=== PATIENT | female | born 1955 | race Caucasian/White ===

== ENCOUNTER → 2016-11-28 | Outpatient (CLI) | payer MEDICAID ==
[2016-11-28 17:25] LABS: ALT 30 U/L (9-52); AST 20 U/L (14-36); Alkaline Phosphatase 91 U/L (38-126); Anion Gap 12 mmol/L; Blood Urea Nitrogen 14 mg/dL (7-17); Calcium 9.7 mg/dL (8.4-10.2); Carbon Dioxide 26 mmol/L (22-30); Chloride 106 mmol/L (98-107); Glucose 89 mg/dL (74-99); Non-African American GFR(MDRD) >60 (>60 ml/min/1.73 sqM); Potassium 4.7 mmol/L (3.5-5.1); Sodium 144 mmol/L (137-145); Total Bilirubin 0.2 mg/dL (0.2-1.3); Total Protein 7.5 g/dL (6.3-8.2)
[2016-11-28 17:32] LABS: Anisocytosis Slight; Basophils % (A) 0 %; CH 20.2; CHCM 28.4; Eosinophils % (A) 0 %; HCT 25.3 % (34.0-46.0); HDW 3.98; HGB 7.1 gm/dL (11.4-16.0); Hypochromasia Marked; Luc # (Auto) 0.11; Luc % (Auto) 2; Lymphocytes # (A) 1.2 k/uL (1.0-4.8); Lymphocytes % (A) 18 %; MCHC 28.1 g/dL (31.0-37.0); MCV 71.3 fL (80.0-100.0); Mean Platelet Volume 7.1; Microcytosis Moderate; Monocytes # (A) 0.5 k/uL (0-1.0); Monocytes % (A) 7 %; Neutrophils # (A) 4.6 k/uL (1.3-7.7); Neutrophils % (A) 72 %; Poikilocytosis Slight; RBC 3.55 m/uL (3.80-5.40); RDW 16.8 % (11.5-15.5); WBC 6.4 k/uL (3.8-10.6); WBC (Perox) 6.67
[2016-11-28 17:34] LABS: Total Iron Binding Capacity 439 ug/dL (265-497)
[2016-11-28 18:30] LABS: Vitamin B12 887 pg/mL (239-931)
[2016-11-28 19:12] LABS: Erythrocyte Sedimentation Rate 41 mm/hr (0-20)
== END | disposition home or self-care (01) ==
LOC: LABWHC1 16:24
PROVIDERS: ATTEND Family Medicine
DX: D64.9 Anemia, unspecified (principal)
CPT/HCPCS: 36415; 80053; 82607; 82728; 82746; 83550; 84443; 85025; 85652

== ENCOUNTER 2016-12-31 10:19 | Day surgery (SDC) | payer MEDICAID ==
[2016-12-26 13:10] VITALS: BMI 32.5
--- NOTE | 2016-12-30 14:55 | P.GSHP ---
History of Present Illness H&P Date: 12/31/16 Chief Complaint: Anemia Patient was scheduled for upper and lower endoscopy tomorrow for the diagnosis of anemia. Her last colonoscopy was in 2012. That was normal with the exception of diverticulosis. To my knowledge is not having any bowel related complaints at this time. No family history of colon cancer. Past Medical History Past Medical History: Blood Disorder, GERD/Reflux Additional Past Medical History / Comment(s): Hx Anemia. Hx of phlebitis LLE in 1979.Shingles 10/01. Fractured 6th rib and fractured L2-T9. History of Any Multi-Drug Resistant Organisms: None Reported Past Surgical History: Appendectomy, Bladder Surgery, Ear Surgery, Hysterectomy Additional Past Surgical History / Comment(s): Hx colonoscopy, bladder susp. 2 ear surgeries (keyshawn). Past Anesthesia/Blood Transfusion Reactions: Motion Sickness, Postoperative Nausea & Vomiting (PONV) Additional Past Anesthesia/Blood Transfusion Reaction / Comment(s): Prior transfusions of her own blood. Past Psychological History: No Psychological Hx Reported Smoking Status: Never smoker Past Alcohol Use History: Rare Past Drug Use History: None Reported - Past Family History Brother(s) Family Medical History: Cancer Additional Family Medical History / Comment(s): Hodgkins. Medications and Allergies Home Medications Medication Instructions Recorded Confirmed Type Ascorbic Acid [Vitamin C] 1,000 mg PO DAILY 12/26/16 12/26/16 History Coral Calcium 1 tab PO DAILY 12/26/16 12/26/16 History Ferrous Sulfate [Feosol] 325 mg PO BID 12/26/16 12/26/16 History Ranitidine HCl [Zantac] 150 mg PO HS 12/26/16 12/26/16 History Vitamin B Complex 1 tab PO DAILY 12/26/16 12/26/16 History Vitamin D3 Unk 5,000 mg PO DAILY 12/26/16 12/26/16 History Allergies Allergy/AdvReac Type Severity Reaction Status Date / Time nitrofurantoin Allergy Rash/Hives Verified 12/26/16 12:48 [From Macrodantin] Penicillins Allergy Itching Verified 12/26/16 12:48 Surgical - Exam Deferred Assessment and Plan (1) Anemia Narrative/Plan: Will proceed with upper and lower endoscopy. Status: Acute
[~2016-12-31 10:19] MED LIST: LACTATED RINGERS 1,000 ML IV SCH
[2016-12-31] MEDS ORDERED: LIDOCAINE 1% 20 ML VIAL (10MG/ML) FOR IV START SQ ONE (11:25)
[2016-12-31 11:34] VITALS: RESP 16; TEMP 98.3
--- NOTE | 2016-12-31 12:48 | P.HPADDEND ---
H&P Addendum H&P Addendum Date: 12/31/16 Physical exam: General: Well-developed, well-nourished HEENT: Normocephalic, sclerae nonicteric Abdomen: Nontender, nondistended Extremities: No edema Neuro: Alert and orient No additional changes to the H&P
[2016-12-31] MEDS ORDERED: PROPOFOL 10 MG/ML 20 ML VIAL IV ONE (12:51)
[2016-12-31] MEDS ORDERED: MIDAZOLAM 2 MG/2 ML VIAL ONE (12:51)
[2016-12-31] MEDS ORDERED: LACTATED RINGERS 1,000 ML IV ONE (13:13)
--- NOTE | 2016-12-31 13:24 | P.PCN ---
Date of Procedure: 12/31/16 Procedure(s) Performed: PREOPERATIVE DIAGNOSIS: Anemia POSTOPERATIVE DIAGNOSIS: Duodenitis with erosions, gastritis, moderate hiatal hernia, distal esophagitis with Schatzki's ring, transverse and sigmoid colon polyps PROCEDURE: 1. EGD with biopsy 2. Colonoscopy with snare polypectomy ANESTHESIA: [facility] [place] SURGEON: Kareem Carranza M.D. SPECIMENS: Duodenum, antrum, GE junction, polyps ENDOSCOPIC PROCEDURE: The patient was on the endoscopy table in the left decubitus position. The Olympus gastroscope was inserted into the oropharynx and passed under direct visualization to the region of the third portion of the duodenum. From that point the scope was slowly withdrawn inspecting all surfaces carefully. There was duodenitis present with multiple small superficial erosions. Biopsies of the duodenum took place. The pylorus was widely patent. The stomach revealed mild gastritis. Retroflexion revealed a moderate sized hiatal hernia. The diaphragmatic hiatus was present at 44 7 m. The GE junction was present at 39 cm. There was some gastritis at the site of the hernia is well. The esophagus was examined. There was distal esophagitis present with a Schatzki's ring noted. A biopsy of the GE junction took place. The remainder the esophagus appear normal. The patient was kept on the endoscopy table in the left decubitus position. The Olympus colonoscope was inserted into the anus and passed under direct visualization to the base of the cecum. The appendiceal orifice was visualized. From that point the scope was slowly withdrawn inspecting all surfaces carefully. There were no neoplastic inflammatory or polypoid lesions throughout the cecum and ascending colon. In the transverse colon there was noted to be a small polyp that was removed using the snare with cautery technique. In the sigmoid colon and another small polyp was removed in a similar fashion. The patient's prep was somewhat suboptimal particularly in the rectosigmoid region. I did not visualize any abnormalities however. There was no visible diverticulosis seen. Digital rectal examination was normal. The patient was taken to the recovery room in stable condition per anesthesia guidelines. RECOMMENDATIONS: Biopsy results. Increase antiacid therapy. Minimize NSAID use.
[2016-12-31 13:45] VITALS: BP 146/84; PULSE 63
== END 2016-12-31 14:38 | disposition home or self-care (01) ==
LOC: ORWHC2ENDO 10:19
PROVIDERS: ATTEND Surgery
DX: K29.80 Duodenitis without bleeding (principal); K44.9 Diaphragmatic hernia without obstruction or gangrene; K29.50 Unspecified chronic gastritis without bleeding; K21.0 Gastro-esophageal reflux disease with esophagitis; K22.2 Esophageal obstruction; K20.0 Eosinophilic esophagitis; D12.3 Benign neoplasm of transverse colon; D12.5 Benign neoplasm of sigmoid colon; Z80.7 Family history of other malignant neoplasms of lymphoid, hematopoietic and related tissues; Z79.899 Other long term (current) drug therapy; Z88.1 Allergy status to other antibiotic agents; Z88.0 Allergy status to penicillin
CPT/HCPCS: 88305; 88312; 88342; 45385; 43239; J2250; J2704; 99153

== ENCOUNTER → 2019-08-26 | Outpatient (CLI) | payer MEDICARE, BC ==
[2019-08-26 17:42] LABS: HCT 41.9 % (34.0-46.0); HGB 14.3 gm/dL (11.4-16.0); MCH 33.3 pg (25.0-35.0); MCHC 34.2 g/dL (31.0-37.0); MCV 97.2 fL (80.0-100.0); Mean Platelet Volume 5.9; Platelet Count 304 k/uL (150-450); RBC 4.31 m/uL (3.80-5.40); RDW 12.6 % (11.5-15.5); WBC 8.2 k/uL (3.8-10.6)
[2019-08-26 17:46] LABS: Potassium 4.3 mmol/L (3.5-5.1)
== END | disposition home or self-care (01) ==
LOC: LABPAT 16:29
PROVIDERS: ATTEND Internal Medicine Interventional Cardiology
DX: Z01.812 Encounter for preprocedural laboratory examination (principal); R06.02 Shortness of breath; R94.39 Abnormal result of other cardiovascular function study
CPT/HCPCS: 36415; 80051; 82565; 82947; 84520; 85027

== ENCOUNTER → 2019-08-30 | Day surgery (SDC) | payer MEDICARE, BC ==
[2019-08-29 11:45] VITALS: BMI 36.7
[~2019-08-30] MED LIST changes: +ALPRAZolam 0.25 MG TAB PO PRN; +ALPRAZolam 0.5 MG TAB PO PRN; +ASPIRIN 325 MG TAB PO ONE; +ATORVASTATIN 80 MG TAB PO ONE; +HEPARIN SODIUM 1,000 UN/ML (10ML VL) IV ONE; +HEPARIN SODIUM 1,000 UN/ML (10ML VL) ONE; +IOPAMIDOL-370 100ML BTL INJ ONE; -LACTATED RINGERS 1,000 ML IV SCH; +LIDOCAINE 1% INJ 10MG/ML (20 ML MDV) ONE; +LIDOCAINE 1% INJ 10MG/ML (20 ML MDV) SQ ONE; +MIDAZOLAM 2 MG/2 ML VIAL IV ONE; +NITROGLYCERIN SL TABS 0.4 MG TAB SUBLINGUAL PRN; +RX INFO: IV CONTRAST WAS GIVEN 1 EACH MISC MISCELLANE PRN; +SODIUM CHLORIDE 0.9% 1,000 ML IV SCH; +SODIUM CHLORIDE 0.9% 1,000 ML in EMPTY BAG 1 BAG IV ONE; +VERAPAMIL 2.5 MG/ML 2 ML AMP ONE; +amLODIPine 5 MG TAB PO STA
[2019-08-30 05:41] VITALS: RESP 18; TEMP 98.1
[2019-08-30] MEDS: VERAPAMIL SYRINGE (5 MG/10 ML) INTRAARTER ONE ×2 (06:09→06:25)
--- NOTE | 2019-08-30 08:37 | CC ---
CARDIAC CATHETERIZATION REPORT DATE OF SERVICE: 08/30/2019 PROCEDURE: Coronary angiography. PERFORMED BY: Dr. Nini Duncan. CLINICAL INFORMATION: Mrs. Stefani Mars is a 64-year-old lady with hypertension, hyperlipidemia, who had a recent positive stress test with poor exercise capacity. She was advised coronary angiography after due discussion regarding risks, benefits, and options. PROCEDURE NOTE: Under local anesthesia and strict aseptic precautions, a 6-Persian introducer was placed in the right radial artery. I used a JL3.5 and JR4 catheters, There was extreme tortuosity as the brachiocephalic artery connected to the ascending aorta. However, with the help of a Glidewire, I was able to get the catheter down and using the wire to help cannulate both arteries were cannulated nicely. I did not attempt LV pressures because of extreme tortuosity of the arterial system. Coronary angiography was performed uneventfully. The sheath was taken out and TR band applied and patient was sent to the room in stable condition. Saturation of the fingers of the right hand was about 98%. Patient received 3,500 units of heparin intravenously. CORONARY ANGIOGRAPHY FINDINGS: RIGHT CORONARY ARTERY: Technically a dominant vessel. No significant disease. Distally it bifurcates into PDA and PLV, both of which supply a sizable amount of myocardium. There is no significant disease in the dominant RCA or its branches. LEFT MAIN CORONARY ARTERY: Short patent disease-free vessel that bifurcates into LAD and circumflex. LEFT ANTERIOR DESCENDING CORONARY ARTERY: Good caliber vessel extends along the anterior wall, gives off septal and diagonal branches runs all the way to the apex, has no significant disease only minor irregularities noted. LEFT POSTERIOR CIRCUMFLEX CORONARY ARTERY: Technically nondominant vessel gives off a single obtuse marginal that runs laterally in the lateral direction with a tortuous larger branch which continues as a _postero- lateral. No significant disease in the nondominant fair caliber, fair distribution circumflex system. LV-gram was not performed. LV pressures were not checked. FINAL IMPRESSION: This patient has a right dominant system. No significant obstructive coronary artery disease. Filling pressures were not checked. RECOMMENDATIONS: Findings were reviewed with the patient. She has a poor exercise capacity. We will also check pulmonary function tests and seek full pulmonary evaluation and get into a cardiac rehab type program to improve her conditioning. The patient will be discharged later on today and will be seen in my office in the next 48 hours. Moderate conscious sedation time was 26 min. MMODL / IJN: [id number] / MTDOlimpia
--- NOTE | 2019-08-30 12:01 | ECHOF ---
Referral Reason:LV Function MEASUREMENTS -------- HEIGHT: 160.0 cm WEIGHT: 112.9 kg BP: RVIDd: 3.4 cm (< 3.3) IVSd: 1.3 cm (0.6 - 1.1) LVIDd: 4.7 cm (3.9 - 5.3) LVPWd: 1.6 cm (0.6 - 1.1) IVSs: 1.9 cm LVIDs: 3.2 cm LVPWs: 1.8 cm IVSd: 1.4 cm (0.6 - 1.1) LVIDd: 4.4 cm (3.9 - 5.3) LVPWd: 1.7 cm (0.6 - 1.1) IVSs: 2.4 cm LVIDs: 2.3 cm LVPWs: 2.2 cm EDV(Teich): 89 ml ESV(Teich): 19 ml EF(Teich): 79 % %FS: 48 % SV(Teich): 70 ml Ao Diam: 3.8 cm (2.0 - 3.7) AV Cusp: 1.7 cm (1.5 - 2.6) LA Diam: 3.6 cm (2.7 - 3.8) MV E Papo: 0.60 m/s MV DecT: 196 ms MV A Papo: 0.81 m/s MV E/A Ratio: 0.74 FINDINGS -------- Sinus rhythm. This was a technically adequate study. The left ventricular size is normal. There is moderate concentric left ventricular hypertrophy. O verall left ventricular systolic function is normal with, an EF between 55 - 60 %. Atypical septal wall motion The right ventricle is mildly enlarged. The left atrial size is normal. The right atrial size is normal. Interatrial and interventricular septum intact. There is no evidence of aortic regurgitation. There is no evidence of aortic stenosis. No mitral regurgitation. Trace tricuspid regurgitation present. Unable to estimate RVSP due to inadequate TR jet spectral do ppler profile. There is no pulmonic regurgitation present. The aortic root size is normal. IVC Not well visulized. There is no pericardial effusion. CONCLUSIONS -------- 1. Sinus rhythm. 2. This was a technically adequate study. 3. The left ventricular size is normal. 4. There is moderate concentric left ventricular hypertrophy. 5. Overall left ventricular systolic function is normal with, an EF between 55 - 60 %. 6. Atypical septal wall motion 7. The right ventricle is mildly enlarged. 8. The left atrial size is normal. 9. The right atrial size is normal. 10. Interatrial and interventricular septum intact. 11. There is no evidence of aortic regurgitation. 12. There is no evidence of aortic stenosis. 13. No mitral regurgitation. 14. Trace tricuspid regurgitation present. 15. Unable to estimate RVSP due to inadequate TR jet spectral doppler profile. 16. There is no pulmonic regurgitation present. 17. The aortic root size is normal. 18. IVC Not well visulized. 19. There is no pericardial effusion. POSTAGE MACHINE OPERATOR: Denita Becerra RDCS
[2019-08-30 13:19] VITALS: BP 128/65; PULSE 55
== END ==
LOC: CATHCVL 05:32
PROVIDERS: ATTEND Internal Medicine Interventional Cardiology
DX: I51.7 Cardiomegaly (principal); I07.1 Rheumatic tricuspid insufficiency; I77.1 Stricture of artery; R07.89 Other chest pain; R93.1 Abnormal findings on diagnostic imaging of heart and coronary circulation; E78.5 Hyperlipidemia, unspecified; E78.00 Pure hypercholesterolemia, unspecified; R94.39 Abnormal result of other cardiovascular function study; Z79.899 Other long term (current) drug therapy; Z88.1 Allergy status to other antibiotic agents
CPT/HCPCS: 93306; 93454; C1769 ×2; C1894; J2250; J2001; J1644; Q9967

== ENCOUNTER → 2020-01-30 | Outpatient (CLI) | payer MEDICARE, BC | END | disposition home or self-care (01) | DX: E78.5 Hyperlipidemia, unspecified (principal) | CPT/HCPCS: 36415; 80061; 82550; 84450; 84460 ==

== ENCOUNTER 2022-04-10 15:35 | Emergency (ER) | payer MEDICARE, BC ==
[2022-04-10] MEDS ORDERED: KETOROLAC 15 MG/ML 1 ML VIAL IM STA ×2 (17:17→21:50)
[2022-04-10] MEDS ORDERED: ORPHENADRINE 30 MG/ML 2 ML VIAL IVP STA (21:46)
[2022-04-10] MEDS ORDERED: LORazepam 2 MG/ML INJ IM STA (21:49)
[2022-04-10] MEDS ORDERED: HYDROmorphone 1 MG/ML 1 ML SYRINGE IM STA (21:51)
--- NOTE | 2022-04-10 23:36 | ED ---
General Adult HPI - General Chief complaint: Back Pain/Injury Stated complaint: Pain Control Time Seen by Provider: 04/10/22 21:32 Source: patient Mode of arrival: wheelchair Limitations: no limitations - History of Present Illness Initial comments: Patient is a 66-year-old female presenting with chief complaint of back pain. Patient states that at the end of February she sustained several fractures to the right arm and compression fractures to the lower back after falling backwards down 2 stairs. Her hospital stay and surgeries were performed in [place]. Patient is now back in [place] and following with Dr. Rodriguez for her right arm injuries. Patient states that her pain has been increased recently. She is taking Percocet 7.5 mg at home which have not been helping her pain today. Patient states that she has had long-standing prior difficulty controlling her bladder, denies any new or worsening loss of bladder control, denies loss of bowel control. Denies saddle paresthesia, denies leg numbness or weakness. Denies chest pain, shortness of breath, abdominal pain, nausea, vomiting, hematochezia, hematuria, dysuria, urgency, frequency. - Related Data Home Medications Medication Instructions Recorded Confirmed Ascorbic Acid [Vitamin C] 1,000 mg PO DAILY 12/26/16 08/30/19 Vitamin B Complex 1 tab PO DAILY 12/26/16 08/30/19 Aspirin [Adult Low Dose Aspirin EC] 81 mg PO QAM 08/29/19 08/30/19 Cholecalciferol (Vitamin D3) 5,000 unit PO DAILY 08/29/19 08/30/19 [Vitamin D3] Ferrous Sulfate [Iron (65 MG 325 mg PO DAILY 08/29/19 08/30/19 Elemental)] Metoprolol Tartrate [Lopressor] 25 mg PO QAM 08/29/19 08/30/19 Rosuvastatin Calcium [Crestor] 5 mg PO HS 08/29/19 08/30/19 Previous Rx's Medication Instructions Recorded amLODIPine BESYLATE [Norvasc] 5 mg PO HS #30 tablet 08/30/19 Allergies Allergy/AdvReac Type Severity Reaction Status Date / Time nitrofurantoin Allergy Rash/Hives Verified 08/30/19 05:17 [From Macrodantin] Penicillins Allergy Itching Verified 08/30/19 05:17 Review of Systems ROS Statement: Those systems with pertinent positive or pertinent negative responses have been documented in the HPI. ROS Other: All systems not noted in ROS Statement are negative. Past Medical History Past Medical History: Blood Disorder, GERD/Reflux Additional Past Medical History / Comment(s): Hx Anemia. Hx of phlebitis LLE in 1979.Shingles 10/01. Fractured 6th rib and fractured L2-T9. History of Any Multi-Drug Resistant Organisms: None Reported Past Surgical History: Appendectomy, Bladder Surgery, Ear Surgery, Hysterectomy Additional Past Surgical History / Comment(s): Hx colonoscopy, bladder susp. 2 ear surgeries (keyshawn). Past Anesthesia/Blood Transfusion Reactions: Motion Sickness, Postoperative Nausea & Vomiting (PONV) Additional Past Anesthesia/Blood Transfusion Reaction / Comment(s): Prior transfusions of her own blood. Past Psychological History: No Psychological Hx Reported Smoking Status: Never smoker Past Alcohol Use History: Rare Past Drug Use History: None Reported - Past Family History Brother(s) Family Medical History: Cancer Additional Family Medical History / Comment(s): Hodgkins. General Exam Limitations: no limitations General appearance: alert, in no apparent distress Head exam: Present: atraumatic, normocephalic, normal inspection Eye exam: Present: normal appearance, EOMI. Absent: scleral icterus Neck exam: Present: normal inspection Respiratory exam: Present: normal lung sounds bilaterally. Absent: respiratory distress, wheezes, rales, rhonchi, stridor Cardiovascular Exam: Present: regular rate, normal rhythm, normal heart sounds. Absent: systolic murmur, diastolic murmur, rubs, gallop, clicks Extremities exam: Present: normal inspection (Patient is wearing a brace and has several surgical scars to the right arm, otherwise normal inspection), full ROM (Limited range of motion of the right arm due to recent surgery, otherwise full range of motion). Absent: tenderness Back exam: Present: normal inspection. Absent: full ROM (Secondary to pain) Neurological exam: Present: alert, oriented X3, CN II-XII intact Expanded Patient oriented to: Present: person, place, time Speech: Present: fluid speech Cranial nerves: EOM's Intact: Normal, Facial Sensation: Normal Eye Response: (4) open spontaneously Motor Response: (6) obeys commands Verbal Response: (5) oriented [place] Total: 15 Psychiatric exam: Present: normal affect, normal mood Skin exam: Present: warm, dry, intact, normal color. Absent: rash Course Vital Signs 04/10/22 17:11 Temperature 98.2 F Pulse Rate 74 Respiratory 18 Rate Blood Pressure 136/85 O2 Sat by Pulse 98 Oximetry Medical Decision Making - Medical Decision Making Patient is a 66-year-old female presenting with chief complaint of back pain. Patient states that at the end of February she suffered several compression fractures after falling backwards down 2 stairs. Patient has been using her pain medication at home, this includes Percocet 7.5 mg, and states that today it has not been helping her. On examination patient is clearly in pain, other than her right arm which is in a brace and has surgical changes, she has full range of motion of the remaining 3 limbs. She denies any new onset loss of bowel or bladder control, saddle paresthesia, leg numbness or weakness. Examination shows no focal neurological deficits. Patient was given pain medication. On r eassessment patient is resting comfortably, she appears stable for discharge with outpatient follow-up at this time. I instructed the patient to follow up with her PCP and orthopedist as soon as possible. Report back to ER if any worsening symptoms. I discussed return parameters and alarming symptoms. Answered all questions. Patient conveyed verbal understanding and agreed to the plan. I discussed this case with my attending Dr. Lopez. Disposition Clinical Impression: Back pain Disposition: HOME SELF-CARE Condition: Good Instructions (If sedation given, give patient instructions): Acute Low Back Pain (ED) Additional Instructions: Follow-up with your PCP as soon as possible. Report back to ER if any worsening symptoms, including but not limited to numbness of the genitals, loss of control of your bowel or bladder, leg weakness. Is patient prescribed a controlled substance at d/c from ED?: No Referrals: Devin Baldwin DO [Primary Care Provider] - 1-2 days Time of Disposition: 23:36
[2022-04-11 00:58] VITALS: BP 143/73; PULSE 71; RESP 16; TEMP 98.1
== END 2022-04-11 00:55 | disposition home or self-care (01) ==
LOC: EC 15:35
DX: M54.50 Low back pain, unspecified (principal); K21.9 Gastro-esophageal reflux disease without esophagitis; Z79.899 Other long term (current) drug therapy; W10.9XXA Fall (on) (from) unspecified stairs and steps, initial encounter
CPT/HCPCS: 99283; 96374; 96372 ×4; J2060; J2360; J1170; J1885

== ENCOUNTER 2022-04-13 11:38 | Inpatient (IN) | payer MEDICARE, BC ==
[2022-04-13] MEDS ORDERED: HYDROmorphone 1 MG/ML 1 ML SYRINGE IVP STA (13:28)
[2022-04-13] MEDS ORDERED: LORazepam 2 MG/ML INJ IV STA (13:29)
--- NOTE | 2022-04-13 13:32 | ED ---
General Adult HPI - General Chief complaint: Back Pain/Injury Stated complaint: anxiety Time Seen by Provider: 04/13/22 13:11 Source: patient, RN notes reviewed Mode of arrival: EMS Limitations: no limitations - History of Present Illness Initial comments: Patient is a pleasant 66-year-old female presenting to the emergency department with anxiety and pain. Patient is admitting to feeling very anxious and persistently stating help me how may help me. Patient had a fall over a month ago with several arm fractures. Patient did have 3 surgeries. Patient also has history of reported compression fractures of T9 and L2 which were found to be chronic. Patient denies chronic lower back pain. No new incontinence or retention of bowel or bladder. No leg weakness or loss of sensation. Patient states she was here recently and given medication. Patient is on Percocet at home. Patient has spoke with Dr. Baldwin office as well as Dr. Rodriguez's office. Patient feels she needs to be admitted. - Related Data Home Medications Medication Instructions Recorded Confirmed Ascorbic Acid [Vitamin C] 1,000 mg PO DAILY 12/26/16 08/30/19 Vitamin B Complex 1 tab PO DAILY 12/26/16 08/30/19 Aspirin [Adult Low Dose Aspirin EC] 81 mg PO QAM 08/29/19 08/30/19 Cholecalciferol (Vitamin D3) 5,000 unit PO DAILY 08/29/19 08/30/19 [Vitamin D3] Ferrous Sulfate [Iron (65 MG 325 mg PO DAILY 08/29/19 08/30/19 Elemental)] Metoprolol Tartrate [Lopressor] 25 mg PO QAM 08/29/19 08/30/19 Rosuvastatin Calcium [Crestor] 5 mg PO HS 08/29/19 08/30/19 Previous Rx's Medication Instructions Recorded amLODIPine BESYLATE [Norvasc] 5 mg PO HS #30 tablet 08/30/19 Allergies Allergy/AdvReac Type Severity Reaction Status Date / Time nitrofurantoin Allergy Rash/Hives Verified 04/13/22 12:10 [From Macrodantin] Penicillins Allergy Itching Verified 04/13/22 12:10 Review of Systems ROS Statement: Those systems with pertinent positive or pertinent negative responses have been documented in the HPI. ROS Other: All systems not noted in ROS Statement are negative. Constitutional: Denies: fever Eyes: Denies: eye pain ENT: Denies: ear pain Respiratory: Denies: cough Cardiovascular: Denies: chest pain Endocrine: Denies: fatigue Gastrointestinal: Denies: abdominal pain Genitourinary: Denies: dysuria Musculoskeletal: Reports: as per HPI, back pain Skin: Denies: rash Neurological: Denies: weakness Psychiatric: Reports: anxiety Past Medical History Past Medical History: Blood Disorder, GERD/Reflux Additional Past Medical History / Comment(s): Hx Anemia. Hx of phlebitis LLE in 1979.Shingles 10/01. Fractured 6th rib and fractured L2-T9. History of Any Multi-Drug Resistant Organisms: None Reported Past Surgical History: Appendectomy, Bladder Surgery, Ear Surgery, Hysterectomy Additional Past Surgical History / Comment(s): Hx colonoscopy, bladder susp. 2 ear surgeries (keyshawn). right shoulder/elbow/wrist surgery post trauma. Past Anesthesia/Blood Transfusion Reactions: Motion Sickness, Postoperative Nausea & Vomiting (PONV) Additional Past Anesthesia/Blood Transfusion Reaction / Comment(s): Prior transfusions of her own blood. Past Psychological History: No Psychological Hx Reported Smoking Status: Never smoker Past Alcohol Use History: Rare Past Drug Use History: None Reported - Past Family History Brother(s) Family Medical History: Cancer Additional Family Medical History / Comment(s): Hodgkins. General Exam Limitations: no limitations General appearance: alert, in no apparent distress Head exam: Present: normocephalic Eye exam: Present: normal appearance Neck exam: Present: normal inspection Respiratory exam: Present: normal lung sounds bilaterally Cardiovascular Exam: Present: regular rate, normal rhythm Expanded Peripheral pulses: 2+: Posterior Tibialis (R), Posterior Tibialis (L), Dorsalis Pedis (R), Dorsalis Pedis (L) GI/Abdominal exam: Present: soft. Absent: tenderness, pulsatile mass Extremities exam: Present: other (Incision right upper arm clean and dry and intact. Brace on the right wrist/forearm.) Back exam: Present: normal inspection. Absent: tenderness Neurological exam: Present: alert Psychiatric exam: Present: anxious Skin exam: Present: normal color Course Vital Signs 04/13/22 12:05 Temperature 97.9 F Pulse Rate 58 L Respiratory 20 Rate Blood Pressure 145/74 O2 Sat by Pulse 96 Oximetry Medical Decision Making - Medical Decision Making Patient states she is unable to go home secondary to jehovah's witness anxiety and relentless back pain. Case discussed with Dr. Acuna, who will admit covering for Dr. Baldwin. Consults will be placed with Dr. Camarillo as well as psychiatry. Disposition Clinical Impression: Back pain, Anxiety Disposition: ADMITTED IP TO THIS HOSP Is patient prescribed a controlled substance at d/c from ED?: No Referrals: Devin Baldwin DO [Primary Care Provider] - 1-2 days Time of Disposition: 13:45
[2022-04-13] MEDS ORDERED: HYDROmorphone 0.5 MG/0.5 ML SYRINGE IVP PRN (13:45)
[2022-04-13] MEDS ORDERED: LORazepam 2 MG/ML INJ IV PRN (13:45)
[2022-04-13] MEDS ORDERED: SODIUM CHLORIDE 0.9% 1,000 ML IV SCH (13:45)
[2022-04-13] MEDS ORDERED: NALOXONE 0.4 MG/ML 1 ML VIAL IV PRN (13:45)
[2022-04-13] MEDS ORDERED: HYDROmorphone 1 MG/ML 1 ML SYRINGE IVP PRN (13:45)
[2022-04-13] MEDS: SODIUM CHLORIDE 0.9% 1,000 ML IV STA ×2 (14:00→18:23)
[2022-04-13 14:18] LABS: Basophils % (A) 0 %; Eosinophils # (A) 0.1 k/uL (0-0.7); Eosinophils % (A) 1 %; HGB 12.3 gm/dL (11.4-16.0); Hypochromasia Slight; Lymphocytes # (A) 1.1 k/uL (1.0-4.8); Lymphocytes % (A) 14 %; MCH 30.7 pg (25.0-35.0); MCHC 31.5 g/dL (31.0-37.0); MCV 97.5 fL (80.0-100.0); Mean Platelet Volume 7.2; Monocytes # (A) 0.6 k/uL (0-1.0); Monocytes % (A) 7 %; Neutrophils # (A) 6.2 k/uL (1.3-7.7); Neutrophils % (A) 76 %; Platelet Count 377 k/uL (150-450); WBC 8.1 k/uL (3.8-10.6)
[2022-04-13 14:26] LABS: ALT 21 U/L (4-34); AST 28 U/L (14-36); African American GFR (CKD) >90 (>60 ml/min/1.73 sqM); Albumin 4.1 g/dL (3.5-5.0); Alkaline Phosphatase 212 U/L (38-126); Anion Gap 9 mmol/L; Blood Urea Nitrogen 6 mg/dL (7-17); Calcium 9.5 mg/dL (8.4-10.2); Carbon Dioxide 23 mmol/L (22-30); Chloride 103 mmol/L (98-107); Glucose 92 mg/dL (74-99); Non-African American GFR(CKD) >90 (>60 ml/min/1.73 sqM); Potassium 3.8 mmol/L (3.5-5.1); Sodium 135 mmol/L (137-145); Total Bilirubin 0.6 mg/dL (0.2-1.3); Total Protein 7.7 g/dL (6.3-8.2)
--- NOTE | 2022-04-13 15:11 | XR ---
EXAMINATION TYPE: XR thoracic spine complete DATE OF EXAM: 04/13/2022 COMPARISON: 08/24/2015 HISTORY: Back pain TECHNIQUE: 3 views FINDINGS: There is thoracic kyphotic deformity with anterior wedging of upper lumbar and lower thorac ic vertebra up to 50%. There is L1 more severe wedging of 75%. There is osteopenia. There is T11 wedg ing 50% and T9 wedging 50%. T8 shows 50% compression deformity as well. There is no paraspinal mass. There is evidence of infiltrate and atelectasis at both lung bases. There is hiatal hernia. IMPRESSION: Multiple thoracic compression fractures in the lower thoracic spine which are mostly new compared to old exam.
--- NOTE | 2022-04-13 15:13 | XR ---
EXAMINATION TYPE: XR lumbar spine 2 or 3V DATE OF EXAM: 04/13/2022 COMPARISON: 08/24/2015 HISTORY: Back pain TECHNIQUE: 4 views FINDINGS: There is osteopenia. There is L1 compression deformity 80% anterior wedging. There is 50% w edging of L2 and 20% wedging of L3. There is 36% compression deformity of L4. There is 20% compressio n of L5. Sacroiliac joints are intact. IMPRESSION: Multiple osteoporotic type lumbar compression fractures show significant progression comp ared to old exam.
[2022-04-13] MEDS: busPIRone HCl 10 MG TAB PO SCH ×2 (18:14→19:42)
[2022-04-13] MEDS: APIXABAN 5 MG TAB PO SCH (19:41)
[2022-04-13] MEDS: METOPROLOL TARTRATE 25 MG TAB PO SCH (19:42)
[2022-04-13] MEDS: methocarbamoL 500 MG TAB PO SCH (19:42)
[2022-04-13 20:50] LABS: Amphetamine Screen,Urine Not Detected (NotDetected); Barbiturate Screen,Urine Not Detected (NotDetected); Benzodiazepines Screen,Urine Detected (NotDetected); Cocaine Screen,Urine Not Detected (NotDetected); Methadone Screen, Urine Not Detected (NotDetected); Opiate Screen,Urine Detected (NotDetected); Phencyclidine Screen,Urine Not Detected (NotDetected); Tricyclic Antidepressant,Urine Not Detected (NotDetected); Urn Cannabinoid Scrn Not Detected (NotDetected)
[2022-04-13 20:52] LABS: Oxycodone Screen, Urine Detected (NotDetected)
[2022-04-13] MEDS: MORPHINE SULFATE 2 MG/ML SYRINGE IVP PRN (20:57)
[2022-04-13] MEDS: oxyCODONE-APAP 7.5-325MG 1 EACH TAB PO PRN (23:38)
--- NOTE | 2022-04-13 23:40 | P.HPIM ---
History of Present Illness H&P Date: 04/13/22 Chief Complaint: back pain Patient is a 66-year-old female with a known history of GERD, anxiety and recent history of fall while she was on vacation status post right shoulder surgery and right elbow surgery and forearm fracture on 03/10/2022. She fell on states and also sustained sixth rib fracture. Patient did history of chronic back pain prior to the fall and was told that got worsened with T9 and L2 compression fractures. Hospital course was complicated with pulmonary embolism and is currently on anticoagulation with Eliquis. Patient came to ER with complaints of pain and patient is also very anxious. Complains of lower back pain. Denies any tingling sensation or numbness in the legs. Patient does wear depends and denies any new complaints of incontinence of the bowel or bladder. No leg weakness. Denied any headache or dizziness or lightheadedness. No fever no chills. No cough or sputum production. No chest pain or shortness breath. Thoracic spine x-ray showed mild pulm thoracic compression fractures in the lower thoracic spine which are mostly new compared to old exam. Lumbar spine showed multiple osteoporotic type lumbar compression fractures show significant progression compared to old exam. Laboratory data showed WBC 8.1 hemoglobin 12.3 and platelets 377 Sodium 135 potassium 3.8 chloride 103 BUN 16 creatinine 0.65 and UDS is positive for opiates and oxycodone and benzodiazepines. Review of Systems Constitutional: Patient denies any fever or chills . No generalized weakness or weight loss. Abdomen: Patient denied nausea vomiting and diarrhea and abdominal pain. Cardiovascular: Patient denies any chest pain or short of breath no palpitations. Respiratory: patient denied any cough or sputum production. No shortness of breath Neurologic: Patient denied any numbness or tingling headache. Musculoskeletal: Patient denies any complaints of joint swelling or deformity.back pain Skin: Negative Psychiatric: Negative Endocrine: No heat or cold intolerance. No recent weight gain. Genitourinary: No dysuria or hematuria. All other 14 point ROS negative except the above Past Medical History Past Medical History: Blood Disorder, GERD/Reflux Additional Past Medical History / Comment(s): Hx Anemia. Hx of phlebitis LLE in 1979.Shingles 10/01. Fractured 6th rib and fractured L2-T9. History of Any Multi-Drug Resistant Organisms: None Reported Past Surgical History: Appendectomy, Bladder Surgery, Ear Surgery, Hysterectomy Additional Past Surgical History / Comment(s): Hx colonoscopy, bladder susp. 2 ear surgeries (keyshawn). right shoulder/elbow/wrist surgery post trauma. Past Anesthesia/Blood Transfusion Reactions: Motion Sickness, Postoperative Nausea & Vomiting (PONV) Additional Past Anesthesia/Blood Transfusion Reaction / Comment(s): Prior transfusions of her own blood. Past Psychological History: No Psychological Hx Reported Smoking Status: Never smoker Past Alcohol Use History: Rare Past Drug Use History: None Reported - Past Family History Brother(s) Family Medical History: Cancer Additional Family Medical History / Comment(s): Hodgkins. Medications and Allergies Home Medications Medication Instructions Recorded Confirmed Type Ferrous Sulfate [Iron (65 MG 325 mg PO W/BRKFST 08/29/19 04/13/22 History Elemental)] Metoprolol Tartrate [Lopressor] 25 mg PO BID 08/29/19 04/13/22 History ALPRAZolam [Xanax] 0.25 mg PO DAILY PRN 04/13/22 04/13/22 History Acetaminophen Tab [Tylenol] 325 - 650 mg PO Q6H PRN 04/13/22 04/13/22 History Apixaban [Eliquis] 5 mg PO BID 04/13/22 04/13/22 History Atorvastatin Calcium [Lipitor] 10 mg PO Q48H 04/13/22 04/13/22 History Buprenorphine [Butrans 5 MCG/HR] 1 patch TRANSDERM TU 04/13/22 04/13/22 History Escitalopram [Lexapro] 20 mg PO DAILY 04/13/22 04/13/22 History busPIRone HCl [Buspar] 10 mg PO TID@0900,1600,2100 04/13/22 04/13/22 History methocarbamoL [Robaxin] 1,000 mg PO TID@0900,1600,2100 04/13/22 04/13/22 History oxyCODONE-APAP 7.5-325MG [Percocet 1 tab PO Q8H PRN 04/13/22 04/13/22 History 7.5-325 mg] polyethylene glycoL 3350 [Miralax] 17 gm PO DAILY 04/13/22 04/13/22 History Allergies Allergy/AdvReac Type Severity Reaction Status Date / Time nitrofurantoin Allergy Rash/Hives Verified 04/13/22 16:21 [From Macrodantin] Penicillins Allergy Itching Verified 04/13/22 16:21 Physical Exam Vitals: Vital Signs Temp Pulse Resp BP Pulse Ox 04/13/22 12:05 97.9 F 58 L 20 145/74 96 Intake and Output 04/13/22 04/13/22 04/14/22 14:59 22:59 06:59 Intake Total 200 Balance 200 Intake: Oral 200 Other: Voiding Method Toilet Weight 113.398 kg 113.398 kg PHYSICAL EXAMINATION: Patient is lying in the bed comfortably, no acute distress, awake alert and oriented.. HEENT: Normocephalic. Neck is supple. Pupils reactive. Nostrils clear. Oral cavity is moist. Neck reveals no JVD, carotid bruits, or thyromegaly. CHEST EXAMINATION: Trachea is central. Symmetrical expansion. Lung urbano clear to auscultation and percussion. CARDIAC: Normal S1, S2 with no gallops. No murmurs ABDOMEN: Soft. Bowel sounds normal. No organomegaly. No abdominal bruits. Extremities: reveal no edema. No clubbing or cyanosis Neurologically awake, alert, oriented x3 with well-coordinated movements. No focal deficits noted Skin: No rash or skin lesions. Psychiatric: Cooperative. Nonsuicidal, anxious Musculoskeletal: No joint swelling or deformity. Normal range of motion. Results CBC & Chem 7: 04/13/22 13:28 04/13/22 13:28 Labs: Abnormal Lab Results - Last 24 Hours (Table) 04/13/22 04/13/22 Range/Units 13:28 20:28 Sodium 135 L (137-145) mmol/L BUN 6 L (7-17) mg/dL Alkaline Phosphatase 212 H (38-126) U/L Urine Opiates Screen Detected H (NotDetected) Ur Oxycodone Screen Detected H (NotDetected) U Benzodiazepines Scrn Detected H (NotDetected) Thrombosis Risk Factor Assmnt - DVT/VTE Prophylaxis DVT/VTE Prophylaxis: Pharmacologic Prophylaxis ordered - Choose All That Apply Each Factor Represents 1 point: Obesity (BMI >25) Each Risk Factor Represents 2 Points: Age 61-74 years Thrombosis Risk Factor Assessment Total Risk Factor Score: 3 Thrombosis Risk Factor Assessment Level: Moderate Risk Assessment and Plan Assessment: Intractable back pain and multiple compression fractures on x-ray. Status post fall on 03/10/2022. Recent right shoulder, elbow and forearm surgery Recent pulmonary embolism on anticoagulation with Eliquis Anxiety Hyperlipidemia GERD Chronic normocytic anemia DVT prophylaxis Heparin subcu Plan: Patient will be continued on pain management with Dilaudid and oxycodone. Stool softeners as needed. Continue with Eliquis and BuSpar, Lexapro. Orthopedic surgery will be consulted due to multiple compression fractures. Follow-up closely. Time with Patient: Greater than 30
[2022-04-13 23:53] LABS: Appearance,Urine Clear (Clear); Bacteria,Urine Rare /hpf; Bilirubin,Urine Negative (Negative); Blood,Urine Negative (Negative); Color,Urine Yellow; Glucose,Urine (UA) Negative (Negative); Ketones,Urine Negative (Negative); Leukocyte Esterase,Urine Trace (Negative); Mucus,Urine Rare /hpf; Nitrite,Urine Negative (Negative); PH, Urine 5.5 (5.0-8.0); Protein,Urine Negative (Negative); Squamous Epithelial Cell,Urine 3 /hpf (0-4); Urobilinogen,Urine <2.0 mg/dL (<2.0); WBC,Urine 4 /hpf (0-5)
[2022-04-14] MEDS: MORPHINE SULFATE 2 MG/ML SYRINGE IVP PRN ×2 (00:27→09:22)
[2022-04-14] MEDS: oxyCODONE-APAP 7.5-325MG 1 EACH TAB PO PRN ×2 (07:16→20:42)
[2022-04-14] MEDS: FERROUS SULFATE 325 MG TAB PO SCH (08:22)
[2022-04-14] MEDS: APIXABAN 5 MG TAB PO SCH ×2 (08:22→20:03)
[2022-04-14] MEDS: methocarbamoL 500 MG TAB PO SCH ×3 (08:22→20:04)
[2022-04-14] MEDS: METOPROLOL TARTRATE 25 MG TAB PO SCH ×2 (08:22→20:04)
[2022-04-14] MEDS: ESCITALOPRAM 20 MG TAB PO SCH (08:23)
[2022-04-14] MEDS: polyethylene glycoL 3350 17 GM POWD.PACK PO SCH (08:23)
[2022-04-14] MEDS: busPIRone HCl 10 MG TAB PO SCH ×3 (08:23→20:04)
[2022-04-14 10:46] LABS: Basophils # (A) 0.03 X 10*3/uL (0.00-0.10); Basophils % (A) 0.4 %; Eosinophils # (A) 0.13 X 10*3/uL (0.04-0.35); Eosinophils % (A) 1.9 %; HCT 35.9 % (37.2-46.3); HGB 10.8 g/dL (12.0-15.0); Immature Grans, Automated 0.6 %; Lymphocytes # (A) 1.63 X 10*3/uL (0.90-5.00); Lymphocytes % (A) 23.7 %; MCH 30.3 pg (27.0-32.0); MCHC 30.1 g/dL (32.0-37.0); MCV 100.6 fL (80.0-97.0); Mean Platelet Volume 9.6 fL (9.5-12.2); Monocytes # (A) 0.82 X 10*3/uL (0.20-1.00); Monocytes % (A) 11.9 %; NRBC Per 100 WBC 0 /100 WBCS (0.0-0.0); Neutrophils # (A) 4.24 X 10*3/uL (1.80-7.70); Neutrophils % (A) 61.5 %; Platelet Count 320 X 10*3/uL (140-440); RBC 3.57 X 10*6/uL (4.10-5.20); RDW 15.8 % (11.5-14.5); WBC 6.89 X 10*3/uL (4.50-10.00)
[2022-04-14] MEDS ORDERED: LORazepam 2 MG/ML INJ IV STA (11:00)
[2022-04-14] MEDS ORDERED: HYDROmorphone 0.5 MG/0.5 ML SYRINGE IVP PRN (11:00)
[2022-04-14 11:10] LABS: African American GFR (CKD) 108.5 (60.0-200.0); Anion Gap 13.3 mmol/L (10.00-18.00); BUN/Creat Ratio 8.33 Ratio (12.00-20.00); Calcium 9.2 mg/dL (8.7-10.3); Carbon Dioxide 19.7 mmol/L (20.0-27.5); Non-African American GFR(CKD) 93.7 (60.0-200.0); Potassium 4.4 mmol/L (3.5-5.5)
[2022-04-14 11:32] LABS: C Reactive Protein 1.2 mg/dL (0.00-0.80)
--- NOTE | 2022-04-14 12:38 | P.CNOR ---
History of Present Illness - [facility] Consult date: 04/14/22 Requesting physician: Kirsty Acuna Consult reason: fracture (Multiple compression fracture deformities of the t horacic and lumbar spines) History of present illness: Patient is a very pleasant 66-year-old female who is seen and examined at bedside for further evaluation of her thoracic and lumbar spine with her family present. Patient does have a significant medical history. Patient states they were on vacation in [place], [place] when she sustained a fall on . At that time she sustained multiple fractures to her right shoulder, right elbow, and right wrist. She underwent surgical intervention over the course of 3 days for her right shoulder, right elbow, and right wrist. She states during that admission and evaluation she was also diagnosed with worsening compression fracture deformities at T9 and L2. Patient states during her admission to the hospital she developed a pulmonary embolism. She was admitted to the hospital for approximately 2 weeks. She does not remember much of her admission to the hospital. She was discharged to a rehabilitation facility and felt she was getting stronger. She was discharged and returned home to [place]. Since that time she feels her thoracic and lumbar pain has been worsening. She states she was not prescribed bracing. She states she sustained an injury while lifting a canoe in June 2015 causing compression fractures to T9 and L2 along with a sixth rib fracture. She states since that time she has had some chronic difficulty with pain in her thoracic and lumbar spines but states her pain does improve with rest. Currently she does not feel her back pain is controllable. She denies any lower extremity weakness or radiculopathy bilaterally. She states she does have some chronic difficulty with urinary incontinence/leaking following her previous injury in 2014. She states also following her recent injury and subsequent surgical interventions she is having significant difficulty with anxiety. She is having a hard time remaining calm. She states she does not know how to manage herself currently from a mental standpoint. Medicine is aware of her anxiety and is planning to [facility]. Since her return to [place] she has been following with Dr. Tiffany Rodriguez for treatment and evaluation of her right shoulder, right elbow, and right wrist status post multiple surgical interventions. She continues to take Eliquis for her pulmonary embolism. Drain evaluation here at [facility], x-ray imaging of her thoracic spine and lumbar spine were performed. Imaging showed multiple compression fracture deformities of her thoracic and lumbar spines. We did discuss I would like to obtain further imaging as to the chronicity of these multiple fractures but the patient states she does not feel she is currently tolerating further imaging. She would be willing to consider bracing. We did discuss with her plan for bracing at her thoracolumbar spine. Patient states she was previously diagnosed with osteoporosis. She is planning to discuss further treatment options for osteoporosis with her primary care provider, Dr. Baldwin. Patient states she also has a history of stomach ulcer with anemia after long- term ibuprofen use. Past Medical History Past Medical History: Blood Disorder, GERD/Reflux Additional Past Medical History / Comment(s): Hx Anemia. Hx of phlebitis LLE in 1979.Shingles 10/01. Fractured 6th rib and fractured L2-T9. History of Any Multi-Drug Resistant Organisms: None Reported Past Surgical History: Appendectomy, Bladder Surgery, Ear Surgery, Hysterectomy Additional Past Surgical History / Comment(s): Hx colonoscopy, bladder susp. 2 ear surgeries (keyshawn). right shoulder/elbow/wrist surgery post trauma. Past Anesthesia/Blood Transfusion Reactions: Motion Sickness, Postoperative Nausea & Vomiting (PONV) Additional Past Anesthesia/Blood Transfusion Reaction / Comm: Prior transfusions of her own blood. Past Psychological History: No Psychological Hx Reported Smoking Status: Never smoker Past Alcohol Use History: Rare Past Drug Use History: None Reported - Past Family History Brother(s) Family Medical History: Cancer Additional Family Medical History / Comment(s): Hodgkins. Medications and Allergies Home Medications Medication Instructions Recorded Confirmed Type Ferrous Sulfate [Iron (65 MG 325 mg PO W/BRKFST 08/29/19 04/13/22 History Elemental)] Metoprolol Tartrate [Lopressor] 25 mg PO BID 08/29/19 04/13/22 History ALPRAZolam [Xanax] 0.25 mg PO DAILY PRN 04/13/22 04/13/22 History Acetaminophen Tab [Tylenol] 325 - 650 mg PO Q6H PRN 04/13/22 04/13/22 History Apixaban [Eliquis] 5 mg PO BID 04/13/22 04/13/22 History Atorvastatin Calcium [Lipitor] 10 mg PO Q48H 04/13/22 04/13/22 History Buprenorphine [Butrans 5 MCG/HR] 1 patch TRANSDERM TU 04/13/22 04/13/22 History Escitalopram [Lexapro] 20 mg PO DAILY 04/13/22 04/13/22 History busPIRone HCl [Buspar] 10 mg PO TID@0900,1600,2100 04/13/22 04/13/22 History methocarbamoL [Robaxin] 1,000 mg PO TID@0900,1600,2100 04/13/22 04/13/22 History oxyCODONE-APAP 7.5-325MG [Percocet 1 tab PO Q8H PRN 04/13/22 04/13/22 History 7.5-325 mg] polyethylene glycoL 3350 [Miralax] 17 gm PO DAILY 04/13/22 04/13/22 History Allergies Allergy/AdvReac Type Severity Reaction Status Date / Time nitrofurantoin Allergy Rash/Hives Verified 04/13/22 16:21 [From Macrodantin] Penicillins Allergy Itching Verified 04/13/22 16:21 Physical Examination Physical exam: Patient is awake, alert, and oriented 3 Vital signs stable Good chest excursion with deep inspiration and expiration Examination of thoracic and lumbar spine reveals skin is intact with no abrasions, lacerations, or bruises; no erythema, purulence or signs of infection Pain with palpation along the midline of the lower thoracic spine and lower lumbar spine Some increased kyphosis at the thoracic spine Dorsiflexion, plantarflexion, and extensor hallucis longus positive sustained bilaterally Lower extremity strength 5/5 bilaterally Straight leg test negative bilateral lower extremities No signs or symptoms of DVT; no calf pain No pain with internal and external rotation of the hips bilaterally Neurovascularly intact Results Pertinent studies: X-rays of the thoracic spine and lumbar spine taken on 04/13/2022: Evidence of a significant number of compression fractures at the thoracic and lumbar spine of indeterminate age; T8 slight wedging compression fracture deformity; T9 wedge compression fracture deformity with approximately 50% height loss T11 wedge compression fracture deformity of approximately 75% height loss; increased kyphosis of the thoracic spine; L1 wedging compression fracture deformity at approximately 80% height loss; L2 superior endplate compression fracture deformity of approximately 50% height loss; L3 superior endplate compression fracture deformity at approximately 30% height loss; L4 superior endplate compression fracture deformity with approximately 40% height loss; L5 superior endplate compression fracture deformity approximately 30% height loss; bones appear osteopenic - Labs Labs: Abnormal Lab Results - Last 24 Hours (Table) 04/13/22 04/13/22 04/13/22 Range/Units 13:28 20:28 23:20 RBC (4.10-5.20) X 10*6/uL Hgb (12.0-15.0) g/dL Hct (37.2-46.3) % MCV (80.0-97.0) fL MCHC (32.0-37.0) g/dL RDW (11.5-14.5) % Sodium 135 L (137-145) mmol/L Carbon Dioxide (20.0-27.5) mmol/L BUN 6 L (7-17) mg/dL BUN/Creatinine Ratio (12.00-20.00) Ratio Alkaline Phosphatase 212 H (38-126) U/L C-Reactive Protein (0.00-0.80) mg/dL Ur Leukocyte Esterase Trace H (Negative) Urine Bacteria Rare H (None) /hpf Urine Mucus Rare H (None) /hpf Urine Opiates Screen Detected H (NotDetected) Ur Oxycodone Screen Detected H (NotDetected) U Benzodiazepines Scrn Detected H (NotDetected) 04/14/22 04/14/22 Range/Units 05:43 05:43 RBC 3.57 L (4.10-5.20) X 10*6/uL Hgb 10.8 L (12.0-15.0) g/dL Hct 35.9 L (37.2-46.3) % MCV 100.6 H (80.0-97.0) fL MCHC 30.1 L (32.0-37.0) g/dL RDW 15.8 H (11.5-14.5) % Sodium (137-145) mmol/L Carbon Dioxide 19.7 L (20.0-27.5) mmol/L BUN 5.0 L (7-17) mg/dL BUN/Creatinine Ratio 8.33 L (12.00-20.00) Ratio Alkaline Phosphatase (38-126) U/L C-Reactive Protein 1.20 H (0.00-0.80) mg/dL Ur Leukocyte Esterase (Negative) Urine Bacteria (None) /hpf Urine Mucus (None) /hpf Urine Opiates Screen (NotDetected) Ur Oxycodone Screen (NotDetected) U Benzodiazepines Scrn (NotDetected) H & H 04/13/22 04/14/22 Range/Units 13:28 05:43 Hgb 12.3 10.8 L (11.4-16.0) gm/dL Hct 39.0 35.9 L (34.0-46.0) % Result Diagrams: 04/14/22 05:43 04/14/22 05:43 Assessment and Plan Assessment: Assessment: Acute on chronic thoracic and lumbar pain Multiple compression fracture deformities of the thoracic spine and lumbar spine of indeterminate age Compression fracture deformities of T8, T9, T11, L1, L2, L3, L4, and L5 Pulmonary embolism currently on Eliquis Status post fall on 03/10/2022 in [place], [place] resulted in multiple right upper extremity fractures requiring surgical intervention Anxiety Osteoporosis Obesity History of stomach ulcer History of anemia History of injury in June 2015 resulting in compression fractures of T9 and L2 and sixth rib fracture Chronic difficulty with urinary incontinence/leaking following injury in 2014 (1) Multiple fractures of thoracic spine Current Visit: Yes Status: Acute Code(s): S22.009A - UNSP FRACTURE OF UNSP THORACIC VERTEBRA, INIT FOR CLOS FX SNOMED Code(s): 575356099 (2) Lumbar compression fracture Current Visit: Yes Status: Acute Code(s): S32.000A - WEDGE COMPRESSION FRACTURE OF UNSP LUMBAR VERTEBRA, INIT SNOMED Code(s): 661234982 (3) Osteoporosis Current Visit: Yes Status: Acute Code(s): M81.0 - AGE-RELATED OSTEOPOROSIS W/O CURRENT PATHOLOGICAL FRACTURE SNOMED Code(s): 55774124 (4) Thoracic back pain Current Visit: Yes Status: Acute Code(s): M54.6 - PAIN IN THORACIC SPINE SNOMED Code(s): 776194150 (5) Lumbar pain Current Visit: Yes Status: Acute Code(s): M54.50 - LOW BACK PAIN, UNSPECIFIED SNOMED Code(s): 415130065 (6) Status post fall Current Visit: Yes Status: Acute Code(s): Z91.81 - HISTORY OF FALLING SNOMED Code(s): 787218112 (7) Obesity (BMI 30-39.9) Current Visit: Yes Status: Acute Code(s): E66.9 - OBESITY, UNSPECIFIED SNOMED Code(s): 786828851 (8) Pulmonary embolism Current Visit: Yes Status: Acute Code(s): I26.99 - OTHER PULMONARY EMBOLISM WITHOUT ACUTE COR PULMONALE SNOMED Code(s): 15010871 (9) History of gastric ulcer Current Visit: Yes Status: Acute Code(s): Z87.11 - PERSONAL HISTORY OF PEPTIC ULCER DISEASE SNOMED Code(s): 956050374 (10) History of anemia Current Visit: Yes Status: Acute Code(s): Z86.2 - PRSNL HISTORY OF DIS OF THE BLD/BLD-FORM ORG/IMMUN MECHNSM SNOMED Code(s): 070192713 (11) Anxiety Current Visit: Yes Status: Acute Code(s): F41.9 - ANXIETY DISORDER, UNSPECIFIED SNOMED Code(s): 43138817 Plan: Plan: 1. Patient is known have osteoporosis. She initially sustained an injury in 2014 resulting in fractures of T9 and L2. She recovered from those fractures over the course of 12 weeks and was able to return to work and regular activities of daily living. She recently sustained an injury when falling while in [place], [place] on 03/10/2022. At that time she sustained multiple fractures to her right shoulder, elbow, and wrist which all required surgical intervention. She states she was also told at that time she had worsening compression fractures at T9 and L2. She was not prescribed bracing at that time. Her back pain had been improving while she was still in [place] but has worsened since she returned to [place]. Reviewing of x-ray imaging of her thoracic spine and lumbar spine taken at [facility] shows evidence of multiple compression fracture deformities of indeterminate age at T8, T9, T11, L1, L2, L3, L4, and L5. She denies any lower extremity weakness or radiculopathy bilaterally. Patient is also currently on Elquis for recent diagnosis of pulmonary embolism during her admission in [place], [place]. After reviewing of imaging, physical examination the patient, and further discussion with the patient, will currently plan to continue with conservative treatment at this time. At this time we'll plan for bracing. A prescription has been written and will be provided to case management for a Spinomed TLSO brace. Once this brace is delivered and fitted appropriately, patient should wear this brace while sitting upright at greater than 45, during increase activities, during ambulation. Brace is not have to or while lying in bed or while bathing. This brace will most likely be unable to be obtained today, . Riri gasca has been ambulating and performing activities of daily living over the past month without a brace intact. She is not having any neurological change in her lower extremities. We did discuss she should avoid any excessive activities including avoiding bending, twisting, and lifting activities until this brace is delivered and fitted appropriately. She may transfer from her bed to the bathroom. She should avoid working through formal physical therapy activities until her brace is delivered and fitted appropriately. We will continue to follow the patient closely. We did discuss in detail I would like to obtain further imaging with either MRI imaging of her thoracic and lumbar spine or bone scan imaging for further evaluation into the chronicity of her multiple fractures. Patient admits to significant difficulty with anxiety and has had significant difficulty remaining calm. She does not feel she could currently tolerate lying in a machine for further imaging and requests that we do not order further imaging at this time. Anxiety has been discussed with medicine is planning to prescribe Ativan. We did discuss if the patient is able to have her anxiety under better control we may plan to obtain further imaging at that time. Once the patient is discharged from the hospital, she may follow-up with Rm Rosenbaum PA-C or Dr. Goran Camarillo at [facility]. She will continue to follow with Dr. Tiffany Rodriguez for further treatment and evaluation of her right upper extremity status post multiple surgical interventions for fractures at her right shoulder, right elbow, and right wrist. 2. Patient will continue be seen and examined by medicine Time with Patient: Greater than 30 (Including obtaining history, physical examination, reviewing of imaging, and dictation.)
[2022-04-14] MEDS: KETOROLAC 15 MG/ML 1 ML VIAL IVP SCH ×3 (13:22→23:42)
--- NOTE | 2022-04-14 18:10 | PN ---
PROGRESS NOTE DATE OF SERVICE: 04/14/2022 This 66-year-old woman who was admitted with severe back pain also had multiple compression fractures. The patient also recently had right shoulder surgery as well as right forearm surgery after falling while in [place]. The patient is complaining of severe anxiety also. The patient was given Ativan earlier, with some relief. Past medical history reviewed. REVIEW OF SYSTEMS: Fourteen-point review of systems negative except as mentioned earlier. CURRENT MEDICATIONS: Current medications are reviewed and include Lexapro. The rest of the medications and doses are reviewed. PHYSICAL EXAMINATION: Pulse is 50, blood pressure 138/80, respiration 18. HEENT: Conjunctivae normal. NECK: No jugular venous distention. CARDIOVASCULAR: S1, S2 muffled. RESPIRATION: Breath sounds diminished at the bases. No rhonchi. ABDOMEN: Soft. EXAMINATION OF THE RIGHT SHOULDER: Status post surgery. NERVOUS SYSTEM: No focal deficit. LABS: Hemoglobin 10.8. Other labs are noted. ASSESSMENT: 1. Acute severe back pain, intractable, with multiple compression fractures. 2. History of recent right shoulder surgery and elbow and forearm surgery. 3. Recent pulmonary embolism, on anticoagulation with Eliquis. 4. Anxiety, severe. 5. Hyperlipidemia. 6. Gastroesophageal reflux disease. 7. Chronic anemia. RECOMMENDATIONS AND DISCUSSION: I recommend to continue current medications, continue with the monitoring, symptomatic treatment. I recommend pain medications on a regular basis. Add Toradol to the current regimen. Orthopedic evaluation. Otherwise, back brace. Symptomatic treatment. Ativan for anxiety. Orthopedics would like to get an MRI. Once the anxiety is stabilized I would recommend MRI, probable with Ativan 1 mg 30 minutes prior to the procedure to alleviate the anxiety. Overall prognosis guarded. Discussed at length with the patient. See orders for further details. Further recommendations to follow. MMODL / IJN: [id number] /
[2022-04-14] MEDS: LORazepam 0.5 MG TAB PO PRN (18:13)
[2022-04-14] MEDS: ATORVASTATIN 10 MG TAB PO SCH (20:03)
[2022-04-14] MEDS: LORazepam 2 MG/ML INJ IV PRN (23:43)
[2022-04-15] MEDS: KETOROLAC 15 MG/ML 1 ML VIAL IVP SCH ×3 (05:41→17:12)
[2022-04-15] MEDS: polyethylene glycoL 3350 17 GM POWD.PACK PO SCH (08:16)
[2022-04-15] MEDS: FERROUS SULFATE 325 MG TAB PO SCH (08:16)
[2022-04-15] MEDS: methocarbamoL 500 MG TAB PO SCH ×3 (08:16→21:23)
[2022-04-15] MEDS: ESCITALOPRAM 20 MG TAB PO SCH (08:16)
[2022-04-15] MEDS: APIXABAN 5 MG TAB PO SCH ×2 (08:16→21:23)
[2022-04-15] MEDS: busPIRone HCl 10 MG TAB PO SCH ×3 (08:16→21:23)
[2022-04-15] MEDS: METOPROLOL TARTRATE 25 MG TAB PO SCH ×2 (08:16→21:23)
[2022-04-15] MEDS: oxyCODONE-APAP 7.5-325MG 1 EACH TAB PO PRN (08:20)
[2022-04-15] MEDS ORDERED: BUPRENORPHINE TRANSDERM SCH (09:00)
--- NOTE | 2022-04-15 09:05 | P.PN ---
Progress Note - Text Progress Note Date: 04/15/22 Orthopedic spine: History of present illness: Patient is very pleasant 66-year-old female who is seen and examined bedside for follow-up evaluation for her thoracic spine and lumbar spine with her family present. She has been seen and examined by medicine and has been started on Ativan. She also received Dilaudid for pain control this morning. Since being seen and examined yesterday, her anxiety is much better controlled. She is a little to sleep this morning but is answering questions appropriately. She states she does continue to experience ongoing thoracic and lumbar pain. She continues to deny any lower extremity weakness or radiculopathy bilaterally. During her evaluation here at [facility], x-ray imaging of her thoracic spine and lumbar spine were performed. Imaging showed multiple compression fracture deformities of her thoracic and lumbar spines. We did discuss I would like to obtain further imaging as to the chronicity of these multiple fractures. She states today she is unable to undergo MRI imaging and she previously had her stapes removed in her ears bilaterally and a piston implant has been placed. She states she would be willing to undergo bone scan testing. Patient history: Patient does have a significant medical history. Patient states they were on vacation in [place], [place] when she sustained a fall on 03/10/2022. At that time she sustained multiple fractures to her right shoulder, right elbow, and right wrist. She underwent surgical intervention over the course of 3 days for her right shoulder, right elbow, and right wrist. She states during that admission and evaluation she was also diagnosed with worsening compression fracture deformities at T9 and L2. Patient states during her admission to the hospital she developed a pulmonary embolism. She was admitted to the hospital for approximately 2 weeks. She does not remember much of her admission to the hospital. She was discharged to a rehabilitation facility and felt she was getting stronger. She was discharged and returned home to [place]. Since that time she feels her thoracic and lumbar pain has been worsening. She states she was not prescribed bracing. She states she sustained an injury while lifting a canoe in June 2015 causing compression fractures to T9 and L2 along with a sixth rib fracture. She states since that time she has had some chronic difficulty with pain in her thoracic and lumbar spines but states her pain does improve with rest. She states she does have some chronic difficulty with urinary incontinence/leaking following her previous injury in 2014. Since her return to [place] she has been following with Dr. Tiffany Rodriguez for treatment and evaluation of her right shoulder, right elbow, and right wrist status post multiple surgical interventions. She continues to take Eliquis for her pulmonary embolism. Patient states she was previously diagnosed with osteoporosis. She is planning to discuss further treatment options for osteoporosis with her primary care provider, Dr. Baldwin. Patient states she also has a history of stomach ulcer with anemia after long- term ibuprofen use. Physical exam: Patient is awake, alert, and oriented 3 Vital signs stable Good chest excursion with deep inspiration and expiration Examination of thoracic and lumbar spine reveals skin is intact with no abrasions, lacerations, or bruises; no erythema, purulence or signs of infection Pain with palpation along the midline of the lower thoracic spine and lower lumbar spine Some increased kyphosis at the thoracic spine Dorsiflexion, plantarflexion, and extensor hallucis longus positive sustained bilaterally Lower extremity strength 5/5 bilaterally Straight leg test negative bilateral lower extremities No signs or symptoms of DVT; no calf pain No pain with internal and external rotation of the hips bilaterally Neurovascularly intact Pertinent studies: X-rays of the thoracic spine and lumbar spine taken on 04/13/2022: Evidence of a significant number of compression fractures at the thoracic and lumbar spine of indeterminate age; T8 slight wedging compression fracture deformity; T9 wedge compression fracture deformity with approximately 50% height loss T11 wedge compression fracture deformity of approximately 75% height loss; increased kyphosis of the thoracic spine; L1 wedging compression fracture deformity at approximately 80% height loss; L2 superior endplate compression fracture deformity of approximately 50% height loss; L3 superior endplate compression fracture deformity at approximately 30% height loss; L4 superior endplate compression fracture deformity with approximately 40% height loss; L5 superior endplate compression fracture deformity approximately 30% height loss; bones appear osteopenic Assessment: Acute on chronic thoracic and lumbar pain Multiple compression fracture deformities of the thoracic spine and lumbar spine of indeterminate age Compression fracture deformities of T8, T9, T11, L1, L2, L3, L4, and L5 Pulmonary embolism currently on Eliquis Status post fall on 03/10/2022 in [place], [place] resulted in multiple right upper extremity fractures requiring surgical intervention Anxiety Osteoporosis Obesity History of stomach ulcer History of anemia History of injury in June 2015 resulting in compression fractures of T9 and L2 and sixth rib fracture Chronic difficulty with urinary incontinence/leaking following injury in 2015 Plan: 1. Patient is known have osteoporosis. She initially sustained an injury in 2014 resulting in fractures of T9 and L2. She recovered from those fractures over the course of 12 weeks and was able to return to work and regular activities of daily living. She recently sustained an injury when falling while in [place], [place] on 03/10/2022. At that time she sustained multiple fractures to her right shoulder, elbow, and wrist which all required surgical intervention. She states she was also told at that time she had worsening compression fractures at T9 and L2. She was not prescribed bracing at that time. Her back pain had been improving while she was still in [place] but has worsened since she returned to [place]. Reviewing of x-ray imaging of her thoracic spine and lumbar spine taken at [facility] shows evidence of multiple compression fracture deformities of indeterminate age at T8, T9, T11, L1, L2, L3, L4, and L5. She denies any lower extremity weakness or radiculopathy bilaterally. Patient is also currently on Elquis for recent diagnosis of pulmonary embolism during her admission in [place], [place]. After reviewing of imaging, physical examination the patient, and further discussion with the patient, will currently plan to continue with conservative treatment at this time. At this time we'll plan for bracing. A prescription has been written and signed yesterday. It will be provided to case management today for a Spinomed TLSO brace. Once this brace is delivered and fitted appropriately, patient should wear this brace while sitting upright at greater than 45, during increase activities, during ambulation. Brace does not have to or while lying in bed or while bathing. Hopefully this brace will be able to be obtained today. Patient has been ambulating and performing activities of daily living over the past month without a brace intact. She is not having any neurological change in her lower extremities. We did discuss she should avoid any excessive activities including avoiding bending, twisting, and lifting activities until this brace is delivered and fitted appropriately. She may transfer from her bed to the bathroom. She should avoid working through formal physical therapy activities until her brace is delivered and fitted appropriately. We will continue to follow the patient closely. Patient was also having significant difficulty with anxiety yesterday. This has improved since starting Ativan. We again did discuss in detail we would like to obtain further imaging regards to her thoracic and lumbar spines to evaluate the chronicity of her fractures. She states she see had her stapes removed in the ears bilaterally and has had pistons placed. She is unable to undergo MRI imaging due to the piston placement. We discussed we'll plan to obtain a nuclear medicine whole-body bone scan for further evaluation. Patient is agreeable to this. We will plan to order the nuclear medicine whole-body bone scan and we'll review the imaging once complete. Once the patient is discharged from the hospital, she may follow-up with Rm Rosenbaum PA-C or Dr. Goran Camarillo at [facility]. She will continue to follow with Dr. Tiffany Rodriguez for further treatment and evaluation of her right upper extremity status post multiple surgical interventions for fractures at her right shoulder, right elbow, and right wrist. 2. Patient will continue be seen and examined by medicine
[2022-04-15] MEDS: LORazepam 2 MG/ML INJ IV PRN (12:51)
--- NOTE | 2022-04-15 13:23 | PN ---
PROGRESS NOTE DATE OF SERVICE: 04/15/2022 This 66-year-old woman who was admitted with acute severe low back pain was recommended MRI scan which could not be done and the patient is also for a bone scan. The patient refused because the patient has significant anxiety and reports that the patient is unable to lie down. No chest pain. No palpitation. PHYSICAL EXAMINATION: Pulse 71, blood pressure 115/60, respiration 20. HEENT: Oral mucosa moist. Neck: No JVD. Cardiovascular: S1, S2 muffled. Respiration: Breath sounds diminished in the bases. Abdomen: Soft. Nervous system: No focal deficits. LABS: Hemoglobin 10.8. Other labs are noted. C reactive protein 1.20. ASSESSMENT: 1. Acute severe back pain, intractable with multiple compression fractures. 2. History of recent right shoulder surgery and elbow and forearm surgery. 3. Recent pulmonary embolism on anticoagulation with Eliquis. 4. Anxiety, severe. 5. Hyperlipidemia. 6. Gastroesophageal reflux disease. 7. Chronic anemia. RECOMMENDATIONS AND DISCUSSION: Recommend to continue current medications, management and symptomatic treatment. Otherwise the pain management. Closely follow with Orthopedic surgery. Bone scan. Prognosis guarded. Discussed with the patient and family at length. The patient might require PT/OT and possible rehab also depending upon the patient's clinical progression. Further recommendations to follow. MMODL / IJN: [id number] /
--- NOTE | 2022-04-15 13:42 | P.EN ---
Patient will require a hospital bed on discharge given extensive severe intractable lower back pain with multiple compression fractures noted on x-ray she requires positioning of the body that is not feasible with an ordinary bed and the head of the bed needs to be elevated more than 30 most of the time in order to alleviate the pain and/or pressure from her compression fractures.
[2022-04-15] MEDS: HYDROmorphone 0.5 MG/0.5 ML SYRINGE IVP PRN (22:51)
[2022-04-16] MEDS: KETOROLAC 15 MG/ML 1 ML VIAL IVP SCH ×4 (00:28→17:43)
[2022-04-16] MEDS: oxyCODONE-APAP 7.5-325MG 1 EACH TAB PO PRN ×4 (00:28→20:35)
[2022-04-16] MEDS: LORazepam 2 MG/ML INJ IV PRN (07:33)
[2022-04-16] MEDS: polyethylene glycoL 3350 17 GM POWD.PACK PO SCH (08:35)
[2022-04-16] MEDS: methocarbamoL 500 MG TAB PO SCH ×3 (08:35→20:36)
[2022-04-16] MEDS: ESCITALOPRAM 20 MG TAB PO SCH (08:35)
[2022-04-16] MEDS: METOPROLOL TARTRATE 25 MG TAB PO SCH ×2 (08:35→20:36)
[2022-04-16] MEDS: busPIRone HCl 10 MG TAB PO SCH ×3 (08:35→20:37)
[2022-04-16] MEDS: APIXABAN 5 MG TAB PO SCH ×2 (08:36→20:37)
[2022-04-16] MEDS: FERROUS SULFATE 325 MG TAB PO SCH (08:36)
--- NOTE | 2022-04-16 10:44 | P.PN ---
Progress Note - Text Progress Note Date: 04/16/22 Orthopedic spine: History of present illness: Patient is very pleasant 66-year-old female who is seen and examined bedside for follow-up evaluation for her thoracic spine and lumbar spine with her family present. She is having some difficulty with anxiety given this morning. She has been started on Ativan by medicine. She continues to be prescribed multiple medications for pain control including Dilaudid and Percocet 7.5 mg/325 mg. She is currently sitting comfortably in bed answering questions appropriately. Previously prescribed Spinomed TLSO brace was delivered and fitted appropriately yesterday. She has worn this brace while ambulating. She is not wearing this brace while lying sitting in bed She states she does continue to experience ongoing thoracic and lumbar pain. She continues to deny any lower extremity weakness or radiculopathy bilaterally. During her evaluation here at [facility], x-ray imaging of her thoracic spine and lumbar spine were performed. Imaging showed multiple compression fracture deformities of her thoracic and lumbar spines. We did discuss I would like to obtain further imaging as to the chronicity of these multiple fractures. Yesterday the patient states she was willing to have a nuclear medicine whole-body bone scan performed. I ordered this testing but when the testing was set to be performed patient declined the testing. She states today she could not tolerate further testing with further imaging due to her anxiety and states she would not feel comfortable lying in a tube for further imaging. She states at the bedside she does not wish for further imaging during her admission to the hospital in regards to her thoracic or lumbar spines. Patient history: Patient does have a significant medical history. Patient states they were on vacation in [place], [place] when she sustained a fall on 03/10/2022. At that time she sustained multiple fractures to her right shoulder, right elbow, and right wrist. She underwent surgical intervention over the course of 3 days for her right shoulder, right elbow, and right wrist. She states during that admission and evaluation she was also diagnosed with worsening compression fracture deformities at T9 and L2. Patient states during her admission to the hospital she developed a pulmonary embolism. She was admitted to the hospital for approximately 2 weeks. She does not remember much of her admission to the hospital. She was discharged to a rehabilitation facility and felt she was getting stronger. She was discharged and returned home to [place]. Since that time she feels her thoracic and lumbar pain has been worsening. She states she was not prescribed bracing. She states she sustained an injury while lifting a canoe in June 2015 causing compression fractures to T9 and L2 along with a sixth rib fracture. She states since that time she has had some chronic difficulty with pain in her thoracic and lumbar spines but states her pain does improve with rest. She states she does have some chronic difficulty with urinary incontinence/leaking following her previous injury in 2014. Since her return to [place] she has been following with Dr. Tiffany Rodriguez for treatment and evaluation of her right shoulder, right elbow, and right wrist status post multiple surgical interventions. She'll plan to follow up with her in the outpatient setting. She continues to take Eliquis for her pulmonary embolism. Patient states she was previously diagnosed with osteoporosis. She is planning to discuss further treatment options for osteoporosis with her primary care provider, Dr. Baldwin. Patient states she also has a history of stomach ulcer with anemia after long- term ibuprofen use. Physical exam: Patient is awake, alert, and oriented 3 Vital signs stable Good chest excursion with deep inspiration and expiration Examination of thoracic and lumbar spine reveals skin is intact with no abrasions, lacerations, or bruises; no erythema, purulence or signs of infection Pain with palpation along the midline of the lower thoracic spine and lower lumbar spine Some increased kyphosis at the thoracic spine Dorsiflexion, plantarflexion, and extensor hallucis longus positive sustained bilaterally Lower extremity strength 5/5 bilaterally Straight leg test negative bilateral lower extremities No signs or symptoms of DVT; no calf pain No pain with internal and external rotation of the hips bilaterally Neurovascularly intact Pertinent studies: X-rays of the thoracic spine and lumbar spine taken on 04/13/2022: Evidence of a significant number of compression fractures at the thoracic and lumbar spine of indeterminate age; T8 slight wedging compression fracture deformity; T9 wedge compression fracture deformity with approximately 50% height loss T11 wedge compression fracture deformity of approximately 75% height loss; increased kyphosis of the thoracic spine; L1 wedging compression fracture deformity at approximately 80% height loss; L2 superior endplate compression fracture deformity of approximately 50% height loss; L3 superior endplate compression fracture deformity at approximately 30% height loss; L4 superior endplate compression fracture deformity with approximately 40% height loss; L5 superior endplate compression fracture deformity approximately 30% height loss; bones appear osteopenic Assessment: Acute on chronic thoracic and lumbar pain Multiple compression fracture deformities of the thoracic spine and lumbar spine of indeterminate age Compression fracture deformities of T8, T9, T11, L1, L2, L3, L4, and L5 Pulmonary embolism currently on Eliquis Status post fall on 03/10/2022 in [place], [place] resulted in multiple right upper extremity fractures requiring surgical intervention Anxiety Osteoporosis Obesity History of stomach ulcer History of anemia History of injury in June 2015 resulting in compression fractures of T9 and L2 and sixth rib fracture Chronic difficulty with urinary incontinence/leaking following injury in 2014 Plan: 1. Patient is known have osteoporosis. She initially sustained an injury in 2014 resulting in fractures of T9 and L2. She recovered from those fractures over the course of 12 weeks and was able to return to work and regular activities of daily living. She recently sustained an injury when falling while in [place], [place] on 03/10/2022. At that time she sustained multiple fractures to her right shoulder, elbow, and wrist which all required surgical intervention. She states she was also told at that time she had worsening compression fractures at T9 and L2. She was not prescribed bracing at that time. Her back pain had been improving while she was still in [place] but has worsened since she returned to [place]. Reviewing of x-ray imaging of her thoracic spine and lumbar spine taken at [facility] shows evidence of multiple compression fracture deformities of indeterminate age at T8, T9, T11, L1, L2, L3, L4, and L5. She denies any lower extremity weakness or radiculopathy bilaterally. Patient is also currently on Elquis for recent diag nosis of pulmonary embolism during her admission in [place], [place]. After reviewing of imaging, physical examination the patient, and further discussion with the patient, will currently plan to continue with conservative treatment at this time. At this time we'll plan for bracing. A prescription has been written and signed and provided to case management yesterday. This brace has been delivered and fitted appropriately. Patient should continue to wear the Spinomed TLSO brace while sitting upright at greater than 45, during increase activities, during ambulation. Brace does not have to or while lying in bed or while bathing. We did discuss she should avoid any excessive activities including avoiding bending, twisting, and lifting activities until this brace is delivered and fitted appropriately. She may transfer from her bed to the bathroom. She may work with formal physical therapy with her brace intact. Since being seen and examined yesterday, nuclear medicine whole-body bone scan was ordered as the patient was willing to proceed forward with this test but the patient declined having this imaging performed at the time the test was scheduled to be performed. Patient states at the bedside due to anxiety and feeling she would be too uncomfortable to lie in a tube for further imaging she declines further imaging be obtained during her admission to the hospital. She does not wish to have a bone scan performed during her admission to the hospital. At this time, patient will be clear for discharge from an orthopedic spine standpoint. Patient may follow-up with Rm Rosenbaum PA-C or Dr. Goran Camarillo at [facility] approximately 2-3 weeks for further evaluation. She will continue to follow with Dr. Tiffany Rodriguez for further treatment and evaluation of her right upper extremity status post multiple surgical interventions for fractures at her right shoulder, right elbow, and right wrist. 2. Patient will continue be seen and examined by medicine I Have again reviewed the patient and the imaging. The patient has declined further testing care facility. I think that her spine is essentially stable and she is not having any specific neurologic deficit in her symptoms seem to be somewhat better controlled with bracing. I think it is okay for her to be discharged home when she is clear is medicine service to follow up with us in regards to her spine and also with Dr. Rodriguez for her upper extremity issues.
[2022-04-16] MEDS: LORazepam 0.5 MG TAB PO PRN ×2 (12:56→19:59)
--- NOTE | 2022-04-16 13:35 | XR ---
EXAMINATION TYPE: XR chest 1V portable DATE OF EXAM: 04/16/2022 COMPARISON: 12/27/2019 HISTORY: Shortness of breath TECHNIQUE: Single frontal view of the chest is obtained. FINDINGS: Limited inspiration with postsurgical change involving the right shoulder. No pneumothorax . Heart size is enlarged and there is bilateral infiltrate and small effusion. No overt failure. IMPRESSION: Bilateral lower lobe infiltrate or atelectasis correlate clinically.
--- NOTE | 2022-04-16 13:44 | PN ---
PROGRESS NOTE DATE OF SERVICE: 04/16/2022 This 66-year-old woman who was admitted with significant back pain had multiple fractures. Patient had significant panic attacks also and received intravenous Ativan. The patient is being closely monitored Pain Management. No chest pain. No palpitations. No fever. PHYSICAL EXAMINATION: Pulse is 63, blood pressure 120/70, respiration 18. CHEST: Clear to auscultation. CARDIOVASCULAR: S1, S2 muffled. ABDOMEN: Soft. NERVOUS SYSTEM: No focal deficit EXAMINATION OF THE BACK: Tenderness present. LABS: Reviewed. ASSESSMENT: 1. Acute severe back pain, intractable, with multiple compression fractures. 2. History of recent right shoulder surgery and elbow and right forearm surgery. 3. Recent pulmonary embolism, anticoagulated with Eliquis. 4. Anxiety, severe, and panic attacks. 5. Hyperlipidemia. 6. Gastroesophageal reflux disease. 7. Chronic anemia. RECOMMENDATIONS AND DISCUSSION: I recommend to continue current medications, continue with the monitoring, symptomatic treatment. Continue with the pain management. Otherwise, I would also recommend a psychiatric consultation. Will add a small dose of IV steroids. Monitor blood sugars closely. Guarded prognosis. Further recommendations to follow. I would also recommend a chest x-ray and ultrasound of the legs to complete the workup. MMODL / IJN: [id number] / MTDD
[2022-04-16] MEDS: methylPREDNISolone SOD SUCCI 40 MG/ML 1 ML VIAL IV SCH (15:07)
[2022-04-16] MEDS: HYDROmorphone 0.5 MG/0.5 ML SYRINGE IVP PRN (15:08)
--- NOTE | 2022-04-16 16:37 | US ---
EXAMINATION TYPE: US venous doppler duplex LE DATE OF EXAM: 04/16/2022 4:24 PM COMPARISON: NONE CLINICAL HISTORY: dvt. Pain. R/O DVT. Hx PE. Patient is on eliquis. SIDE PERFORMED: Bilateral TECHNIQUE: The lower extremity deep venous system is examined utilizing real time linear array sonog john with graded compression, doppler sonography and color-flow sonography. VESSELS IMAGED: Common Femoral Vein Deep Femoral Vein Greater Saphenous Vein * Femoral Vein Popliteal Vein Small Saphenous Vein * Proximal Calf Veins (* superficial vessels) Right Leg: No evidence of DVT in veins imaged at this time. Left Leg: No evidence of DVT in veins imaged at this time. *Exam is limited due to body habitus. IMPRESSION: 1. Bilateral lower extremity ultrasound negative for deep venous thrombosis.
[2022-04-16 17:12] LABS: Glucose,Whole Blood 111 mg/dL (75-99)
[2022-04-16] MEDS: INSULIN ASPART (NovoLOG) 100 UNIT/ML VIAL SQ SCH ×2 (17:29→21:33)
[2022-04-16] MEDS: ATORVASTATIN 10 MG TAB PO SCH (20:36)
[2022-04-16 21:23] LABS: Glucose,Whole Blood 160 mg/dL (75-99)
[2022-04-17] MEDS: KETOROLAC 15 MG/ML 1 ML VIAL IVP SCH ×3 (00:39→12:37)
[2022-04-17] MEDS: methylPREDNISolone SOD SUCCI 40 MG/ML 1 ML VIAL IV SCH ×4 (00:39→23:40)
[2022-04-17 07:10] LABS: Glucose,Whole Blood 123 mg/dL (75-99)
--- NOTE | 2022-04-17 08:29 | P.PN ---
Progress Note - Text Progress Note Date: 04/17/22 The patient is seen and examined at bedside. She is sitting up in bed since her back is comfortable. She says she has been able to walk with and without her brace. She is extremely anxious this morning. She is having a great deal of difficulty controlling her anxiety. She is not exactly sure why. She is breathing comfortably on room air. She is following commands. The incision in her shoulder looks clean and dry. The wrist splint is intact. She is nontender at her back. She has neurologic status intact at her lower extremities. Assessment and plan Multiple thoracolumbar compression fractures of variable density being treated conservatively with bracing. Recent fall Multiple injuries a right upper extremity status post procedures had outside institution approximately 5 weeks out which appear to be healing appropriately Severe anxiety The patient's orthopedic issues appear overall relatively stable. We will plan to continue conservative treatment for her thoracic and lumbar fractures with bracing whenever she is out of bed. She does not need to use the brace while she is in bed. She may remove the brace for bathing. For her right upper extremity her shoulder appears to be healing appropriate. She should continue her wrist brace. She is scheduled for follow-up with hand specialty as outpatient and I think that is appropriate. The patient's primary issue seems to be her anxiety. She is being treated by medicine and I think that is appropriate. She is having great to do copiously coping with her issues and this is being addressed medically. From an orthopedic standpoint she is clear for discharge home with outpatient follow-up when her anxiety appropriatly managed and cleared with medicine.
[2022-04-17] MEDS: LORazepam 2 MG/ML INJ IV PRN (08:30)
[2022-04-17] MEDS: methocarbamoL 500 MG TAB PO SCH ×3 (08:41→22:12)
[2022-04-17] MEDS: ESCITALOPRAM 20 MG TAB PO SCH (08:41)
[2022-04-17] MEDS: APIXABAN 5 MG TAB PO SCH ×2 (08:42→22:12)
[2022-04-17] MEDS: oxyCODONE-APAP 7.5-325MG 1 EACH TAB PO PRN ×3 (08:42→23:38)
[2022-04-17] MEDS: polyethylene glycoL 3350 17 GM POWD.PACK PO SCH (08:42)
[2022-04-17] MEDS: METOPROLOL TARTRATE 25 MG TAB PO SCH ×2 (08:42→22:13)
[2022-04-17] MEDS: busPIRone HCl 10 MG TAB PO SCH ×3 (08:42→22:12)
[2022-04-17] MEDS: FERROUS SULFATE 325 MG TAB PO SCH (08:42)
[2022-04-17] MEDS: INSULIN ASPART (NovoLOG) 100 UNIT/ML VIAL SQ SCH ×4 (08:44→20:53)
[2022-04-17 11:53] LABS: Glucose,Whole Blood 123 mg/dL (75-99)
--- NOTE | 2022-04-17 13:26 | P.CN ---
Psychiatric Consult - . 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 REASON FOR REFERRAL: Psychiatry was consulted for anxiety, panic attacks, chronic pain. HISTORY OF PRESENT ILLNESS: The patient presented to the hospital on 04/13 she came into the hospital complaining of anxiety and pain. Patient stated that she had a fall approximately one month prior and several arm fractures and has had 3 surgeries for repair. Patient was admitted medically and psychiatrically psychiatry was consulted for anxiety. Patient later states the patient has been anxious at times and has been having panic attacks and also religiously preoccupied. Patient was seen in the room today with her who is agreea ble to speak to poem writer outside. He states that since patient's fall in February in [place], patient was in the hospital and has become more anxious and worrying more. Auditor/Quality spoke with patient in the room today who appears to be anxious, irritable at times. She states that she has been feeling "miserable" and spoke significantly about her pain. She states that anxiety has been increasing for the past month or so. She states that since the fall and hospitalization. She states that she underwent several medical complications in the hospital and it was a "rough time". She states that she is worried about the use of her arm in the future if she can use it or not. She also states that she does not like taking a lot of medications. She states that she was in the hospital for about 2 weeks and then went to rehab. She states that afterwards they drove back to [place] back home and states that the long car ride made her back even worse. She states that she gets panic attacks about 2-3 times a day. She states that at this time only Ativan has been helping. She claims that she does have racing thoughts however denies any paranoia. She states that she sleeps about 2-3 hours a night. Claims that her appetite has been fair. At this time patient denies any suicidal or homical ideations, intent or plan. Patient denies any auditory, visual hallucinations and denies any paranoia or delusions. Patients admits to using no recreational drugs or cigarettes. PAST PSYCHIATRIC HISTORY: Patient has a a history of anxiety and panic attacks. Patient is currently on Lexapro and BuSpar. She also claims that she takes Xanax when necessary. Patient denies any previous psychiatric hospitalizations. Patient denies any psychiatric outpatient follow-up. Patient denies any history of suicide attempts in the past. Past Medical History: Blood Disorder, GERD/Reflux Additional Past Medical History / Comment(s): Hx Anemia. Hx of phlebitis LLE in 1979.Shingles 10/01. Fractured 6th rib and fractured L2-T9. ALLERGIES: as per EMR. CHEMICAL DEPENDENCY HISTORY: as per HPI. FAMILY PSYCHIATRIC/SUBSTANCE USE HISTORY: States that her brother committed suicide in the . SOCIAL HISTORY: Patient was born and raised in [place]. Patient claims that she completed high school and college and got a bachelor's in nursing. 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 She states that she retired about 3 years ago. She denies any legal history. She states that she lives with her in a house, has 3 kids.. MENTAL STATUS EXAM: General Appearance: Patient appears to be overweight, stated age is alert, irritable at times yet attempts to cooperate. Patient appears to have fair hygiene and grooming wearing hospital gown with fair eye contact. Behavior: Patient is calmly lying in bed without any agitated behavior. Appears to be in distress secondary to anxiety. Speech: Patient's speech is fluent and nonpressured. Irritable tone. Mood/Affect: Patient reports their mood is "very anxious", affect is congruent Suicidality/Homicidality: Patient denies having any suicidal or homicidal ideation intent or plan. Perceptions: Patient denies any visual hallucinations and denies any auditory hallucinations Though content/process: There is no evidence of any delusional thought content and thought process is linear and goal-directed. Rambles at times. Focused on her symptoms and pain. Memory and concentration: AOX3, grossly intact for the purposes of this session. Can spell "WORLD" backwards Judgment and insight: poor IMPRESSIONS: Panic disorder PLAN: -At this time patient DOES NOT meet criteria for inpatient psychiatric admission. -Would recommend the following medication changes/additions: Melatonin 6 mg daily at bedtime for sleep, discontinued Lexapro and replaced with Cymbalta 30 mg twice a day for mood/anxiety. Increase BuSpar to 20 mg 3 times a day for anxiety. Vistaril when necessary for anxiety, which should be the first line however if this fails then try Ativan prn for anxiety. -track repair worker to provide patient with outpatient mental health/psychiatry resources for appropriate follow up upon discharge -Communicated plan to patient's nurse -Will continue to follow along -Please contact with any questions. 04/17/22 13:16
--- NOTE | 2022-04-17 13:40 | P.PN ---
Subjective Progress Note Date: 04/17/22 This is a 66-year-old female who was recently admitted with significant back pain and multiple fractures also experiencing significant panic attacks which is a possible component of uncontrolled pain. Patient is alert and oriented 3 and denies any suicidal ideation or thoughts of wanting to harm herself or others. Psychiatry has been consulted and appreciate input and recommendations. Patient is currently maintained on IV pain medication along with oral and has Ativan as needed. Patient denies chest pain or shortness of breath. Patient is afebrile. Patient did receive her LSO brace and reports to walking out into the hallway with it. at the bedside and questions and concerns were answered. Review of systems: Constitutional: reports of fatigue and extreme anxiety with frequent panic attacks, no reports of fever, or chills Cardiovascular: No reports of chest pain or palpitations Respiratory: No reports of shortness of breath or cough GI: No reports of nausea, no reports of of vomiting : No reports of dysuria or retention Neurovascular: reports of generalized weakness, reports lower back and right shoulder pain All medications have been reviewed Active Medications Apixaban (Apixaban 5 Mg Tab) 5 mg PO BID [facility]; Protocol Last Admin: 04/17/22 08:42 Dose: 5 mg Atorvastatin Calcium (Atorvastatin 10 Mg Tab) 10 mg PO Q48H [facility] Last Admin: 04/16/22 20:36 Dose: 10 mg Buspirone HCl (Buspirone Hcl 10 Mg Tab) 20 mg PO TID [facility] Duloxetine HCl (Duloxetine Hcl 30 Mg Capsule.Dr) 30 mg PO BID [facility] Ferrous Sulfate (Ferrous Sulfate 325 Mg Tab) 325 mg PO W/BRKFST [facility] Last Admin: 04/17/22 08:42 Dose: 325 mg Hydromorphone HCl (Hydromorphone 0.5 Mg/0.5 Ml Syringe) 0.5 mg IVP Q3H PRN PRN Reason: Severe Pain Last Admin: 04/16/22 15:08 Dose: 0.5 mg Hydroxyzine Pamoate (Hydroxyzine Pamoate 25 Mg Cap) 50 mg PO Q8HR PRN PRN Reason: Anxiety Insulin Aspart (Insulin Aspart (Novolog) 100 Unit/Ml Vial) 0 unit SQ [facility]; Protocol Last Admin: 04/17/22 12:35 Dose: Not Given Lorazepam (Lorazepam 2 Mg/Ml Inj) 1 mg IV Q6HR PRN PRN Reason: Anxiety Last Admin: 04/17/22 08:30 Dose: 1 mg Lorazepam (Lorazepam 0.5 Mg Tab) 0.5 mg PO Q6HR PRN PRN Reason: Anxiety Last Admin: 04/16/22 19:59 Dose: 0.5 mg Melatonin (Melatonin 3 Mg Tablet) 6 mg PO HS [facility] Methocarbamol (Methocarbamol 500 Mg Tab) 1,000 mg PO TID@0900,1600,2100 [facility] Last Admin: 04/17/22 08:41 Dose: 1,000 mg Methylprednisolone Sodium Succinate (Methylprednisolone Sod Succi 40 Mg/Ml 1 Ml Vial) 40 mg IV Q8HR [facility] Last Admin: 04/17/22 08:44 Dose: 40 mg Metoprolol Tartrate (Metoprolol Tartrate 25 Mg Tab) 25 mg PO BID [facility] Last Admin: 04/17/22 08:42 Dose: 25 mg Buprenorphine [ Butrans 5 Mcg/Hr] Patch 1 patch TRANSDERM TU [facility] Last Admin: 04/15/22 08:17 Dose: Not Given Oxycodone/Acetaminophen (Oxycodone-Apap 7.5-325mg 1 Each Tab) 1 each PO Q6HR PRN PRN Reason: Moderate Pain Last Admin: 04/17/22 08:42 Dose: 1 each Polyethylene Glycol (Polyethylene Glycol 3350 17 Gm Powd.Pack) 17 gm PO DAILY [facility] Last Admin: 04/17/22 08:42 Dose: 17 gm PHYSICAL EXAMINATION: GENERAL: The patient is alert and oriented x4, Well developed, well nourished. Anxious HEENT: Pupils are round and equally reacting to light. EOMI. no scleral icterus. No conjunctival pallor. Normocephalic, atraumatic. No pharyngeal erythema. No thyromegaly. CARDIOVASCULAR: S1 and S2 muffled PULMONARY: diminished breath sounds bilaterally with no wheezing or rhonchi noted. ABDOMEN: soft. Nontender on exam. obese. non-distended, normoactive bowel sounds. No palpable organomegaly. MUSCULOSKELETAL: No joint swelling or deformity. EXTREMITIES: No cyanosis, clubbing, or pedal edema. NEUROLOGICAL: Gross neurological examination did not reveal any focal deficits. Diffuse weakness SKIN: No rashes. Right shoulder surgical site is dry and intact with some Santos ri-Strips noted Assessment: Acute severe back pain, intractable, with multiple compression fractures History of recent right shoulder surgery and elbow and right forearm surgery Recent pulmonary embolism, anticoagulated with Eliquis Anxiety, severe, and panic attacks Hyperlipidemia Gastroesophageal reflux disease Chronic anemia GI prophylaxis DVT prophylaxis Full code Plan: Recommend to continue with current medications and management of pain. Orthopedics Dr. Camarillo has evaluated the patient recommending conservative management at this time and LSO brace has been delivered and patient reports to using and able to get up with assistance of her minimally to the hallway. Patient continues with extreme and severe anxiety and panic attacks and psychiatry has evaluated the patient recommending medication adjustments. Will continue to monitor closely and evaluate for improvement and panic attacks, anxiety, and pain management. Recommend continue monitoring Accu-Cheks before meals and at bedtime and continue with sliding scale as needed as patient is on IV steroids. Patient will complete a steroid taper on discharge. Will also add incentive spirometer and encourage the patient use at least 10 times every hour while awake. Due to multiple complex medical issues, prognosis is guarded. The impression and plan of care has been dictated by Adrianna Aponte, nurse practitioner as directed. MD Unique I have performed a history and examination and MDM of this patient, discussed the same with the dictator, and agree with the dictator's assessment and plan as written ,documented as a scribe. Based on total visit time, I have performed more than 50% of the visit. Any additional findings or plans will be noted. Objective - Vital Signs Vital signs: Vital Signs Temp 97.9 F 04/17/22 07:33 Pulse 56 L 04/17/22 08:00 Resp 18 04/17/22 08:00 BP 151/81 04/17/22 07:33 Pulse Ox 93 L 04/17/22 07:33 FiO2 Intake & Output 04/16/22 04/17/22 04/17/22 18:59 06:59 18:59 Intake Total 931 336 Balance 931 336 Intake: Oral 931 336 Other: Voiding Method Bedside Commode Bedside Commode # Voids 4 1 # Bowel Movements 1 - Labs CBC & Chem 7: 04/14/22 05:43 04/14/22 05:43 Labs: Abnormal Lab Results - Last 24 Hours (Table) 04/16/22 04/16/22 04/17/22 Range/Units 17:11 21:22 07:09 POC Glucose (mg/dL) 111 H 160 H 123 H (75-99) mg/dL 04/17/22 Range/Units 11:51 POC Glucose (mg/dL) 123 H (75-99) mg/dL
[2022-04-17 17:06] LABS: Glucose,Whole Blood 126 mg/dL (75-99)
[2022-04-17] MEDS: HYDROmorphone 0.5 MG/0.5 ML SYRINGE IVP PRN ×2 (18:24→22:10)
[2022-04-17 20:25] LABS: Glucose,Whole Blood 130 mg/dL (75-99)
[2022-04-17] MEDS: hydrOXYzine pamoate 25 MG CAP PO PRN (20:40)
[2022-04-17] MEDS: DULoxetine HCL 30 MG CAPSULE.DR PO SCH (22:12)
[2022-04-17] MEDS: MELATONIN 3 MG TABLET PO SCH (22:12)
[2022-04-18 07:39] LABS: Glucose,Whole Blood 142 mg/dL (75-99)
[2022-04-18] MEDS: METOPROLOL TARTRATE 25 MG TAB PO SCH ×2 (09:32→23:04)
[2022-04-18] MEDS: methylPREDNISolone SOD SUCCI 40 MG/ML 1 ML VIAL IV SCH ×4 (09:32→23:03)
[2022-04-18] MEDS: APIXABAN 5 MG TAB PO SCH ×2 (09:32→23:03)
[2022-04-18] MEDS: DULoxetine HCL 30 MG CAPSULE.DR PO SCH ×2 (09:33→23:03)
[2022-04-18] MEDS: busPIRone HCl 10 MG TAB PO SCH ×3 (09:33→23:03)
[2022-04-18] MEDS: methocarbamoL 500 MG TAB PO SCH ×3 (09:34→23:04)
[2022-04-18] MEDS: polyethylene glycoL 3350 17 GM POWD.PACK PO SCH (09:35)
[2022-04-18] MEDS: INSULIN ASPART (NovoLOG) 100 UNIT/ML VIAL SQ SCH ×4 (09:35→23:01)
[2022-04-18] MEDS: FERROUS SULFATE 325 MG TAB PO SCH (09:40)
[2022-04-18] MEDS: oxyCODONE-APAP 7.5-325MG 1 EACH TAB PO PRN ×2 (09:40→16:25)
[2022-04-18 12:09] LABS: Glucose,Whole Blood 114 mg/dL (75-99)
--- NOTE | 2022-04-18 14:49 | P.PN ---
Progress Note - Text Progress Note Date: 04/18/22 Interval History: Patient was seen for consult follow-up of anxiety. She was found sitting up in her chair by the window with her at bedside. She reports her mood is "pretty good" today, reports she slept much better last night after the medication adjustments. She reports her anxiety as minimal today, rates it as 2- 3/10. She was having panic attacks about 1-2 times per day, but reports no panic attacks so far today. She reports some improvement on the Vistaril. She reports feeling dizzy after taking the Cymbalta last night but that has subsided today. She denies any other medication side effects. At this time, patient denies any suicidal or homical ideations, intent or plan. Patient denies any auditory, visual hallucinations and denies any paranoia or delusions. Mental Status Exam: General Appearance: Patient appears to be an overweight female, stated age. Patient appears to have fair hygiene and grooming, good eye contact. Behavior: Patient is calmly sitting in her chair without any agitated behavior. Speech: Patient's speech is fluent and nonpressured. Mood/Affect: Patient reports her mood is "pretty good", affect is congruent Suicidality/Homicidality: Patient denies having any suicidal or homicidal ideation intent or plan. Perceptions: Patient denies any visual hallucinations and denies any auditory hallucinations Though content/process: There is no evidence of any delusional thought content and thought process is linear and goal-directed. Memory and concentration: AOX3, grossly intact for the purposes of this session. Can spell "WORLD" backwards Judgment and insight: poor Assessment Panic disorder Plan: -At this time patient DOES NOT meet criteria for inpatient psychiatric admission. -Would recommend the following medication changes/additions: Continue Melatonin 6 mg daily at bedtime for sleep Continue Cymbalta 30 mg twice a day for mood/anxiety. Continue Buspar 20 mg 3 times a day for anxiety. Continue Vistaril when necessary for anxiety. -sanitation worker to provide patient with outpatient mental health/psychiatry resources for appropriate follow up upon discharge -Will sign off at this time. -Please contact with any questions.
[2022-04-18 17:37] LABS: Glucose,Whole Blood 132 mg/dL (75-99)
[2022-04-18 19:48] LABS: Glucose,Whole Blood 193 mg/dL (75-99)
--- NOTE | 2022-04-18 20:20 | P.PN ---
Subjective Progress Note Date: 04/18/22 This is a 66-year-old female who was recently admitted with significant back pain and multiple fractures also experiencing significant panic attacks which is a possible component of uncontrolled pain. Patient is alert and oriented 3 and denies any suicidal ideation or thoughts of wanting to harm herself or others. Psychiatry has been consulted and appreciate input and recommendations. Patient is currently maintained on IV pain medication along with oral and has Ativan as needed. Patient denies chest pain or shortness of breath. Patient is afebrile. Patient did receive her LSO brace and reports to walking out into the hallway with it. at the bedside and questions and concerns were answered. 04/18/2022 Patient is seen today and appears more calm today and mildly sedated. Patient reports to being started on new medications and denies any real side effects at this time. Patient continues with severe panic attack and anxiety and will continue to monitor closely. Patient reports to being up with the brace and reports more right wrist and shoulder pain today than her back. Patient has not received IV pain medication since last night. Patient reports to minimal sleep at night. Patient is afebrile and denies chest pain or shortness of breath. Review of systems: Constitutional: reports of fatigue and extreme anxiety with frequent panic attacks, no reports of fever, or chills Cardiovascular: No reports of chest pain or palpitations Respiratory: No reports of shortness of breath or cough GI: No reports of nausea, no reports of of vomiting : No reports of dysuria or retention Neurovascular: reports of generalized weakness, reports right wrist and right shoulder pain All medications have been reviewed Active Medications Apixaban (Apixaban 5 Mg Tab) 5 mg PO BID [facility]; Protocol Last Admin: 04/18/22 09:32 Dose: 5 mg Atorvastatin Calcium (Atorvastatin 10 Mg Tab) 10 mg PO Q48H [facility] Last Admin: 04/16/22 20:36 Dose: 10 mg Buspirone HCl (Buspirone Hcl 10 Mg Tab) 20 mg PO TID [facility] Last Admin: 04/18/22 15:57 Dose: 20 mg Duloxetine HCl (Duloxetine Hcl 30 Mg Capsule.Dr) 30 mg PO BID [facility] Last Admin: 04/18/22 09:33 Dose: 30 mg Ferrous Sulfate (Ferrous Sulfate 325 Mg Tab) 325 mg PO W/GINNY [facility] Last Admin: 04/18/22 09:40 Dose: 325 mg Hydromorphone HCl (Hydromorphone 0.5 Mg/0.5 Ml Syringe) 0.5 mg IVP Q3H PRN PRN Reason: Severe Pain Last Admin: 04/17/22 22:10 Dose: 0.5 mg Hydroxyzine Pamoate (Hydroxyzine Pamoate 25 Mg Cap) 50 mg PO Q8HR PRN PRN Reason: Anxiety Last Admin: 04/17/22 20:40 Dose: 50 mg Insulin Aspart (Insulin Aspart (Novolog) 100 Unit/Ml Vial) 0 unit SQ [facility]; Protocol Last Admin: 04/18/22 17:54 Dose: 1 unit Lorazepam (Lorazepam 2 Mg/Ml Inj) 1 mg IV Q6HR PRN PRN Reason: Anxiety Last Admin: 04/17/22 08:30 Dose: 1 mg Lorazepam (Lorazepam 0.5 Mg Tab) 0.5 mg PO Q6HR PRN PRN Reason: Anxiety Last Admin: 04/16/22 19:59 Dose: 0.5 mg Melatonin (Melatonin 3 Mg Tablet) 6 mg PO HS [facility] Last Admin: 04/17/22 22:12 Dose: 6 mg Methocarbamol (Methocarbamol 500 Mg Tab) 1,000 mg PO TID@0900,1600,2100 [facility] Last Admin: 04/18/22 15:57 Dose: 1,000 mg Methylprednisolone Sodium Succinate (Methylprednisolone Sod Succi 40 Mg/Ml 1 Ml Vial) 40 mg IV Q8HR [facility] Last Admin: 04/18/22 19:01 Dose: 40 mg Metoprolol Tartrate (Metoprolol Tartrate 25 Mg Tab) 25 mg PO BID [facility] Last Admin: 04/18/22 09:32 Dose: 25 mg Buprenorphine [ Butrans 5 Mcg/Hr] Patch 1 patch TRANSDERM TU [facility] Last Admin: 04/15/22 08:17 Dose: Not Given Oxycodone/Acetaminophen (Oxycodone-Apap 7.5-325mg 1 Each Tab) 1 each PO Q6HR PRN PRN Reason: Moderate Pain Last Admin: 04/18/22 16:25 Dose: 1 each Polyethylene Glycol (Polyethylene Glycol 3350 17 Gm Powd.Pack) 17 gm PO DAILY [facility] Last Admin: 04/18/22 09:35 Dose: 17 gm PHYSICAL EXAMINATION: GENERAL: The patient is alert and oriented x4, Well developed, well nourished. Anxious HEENT: Pupils are round and equally reacting to light. EOMI. no scleral icterus. No conjunctival pallor. Normocephalic, atraumatic. No pharyngeal erythema. No thyromegaly. CARDIOVASCULAR: S1 and S2 muffled PULMONARY: diminished breath sounds bilaterally with no wheezing or rhonchi noted. ABDOMEN: soft. Nontender on exam. obese. non-distended, normoactive bowel sounds. No palpable organomegaly. MUSCULOSKELETAL: No joint swelling or deformity. EXTREMITIES: No cyanosis, clubbing, or pedal edema. NEUROLOGICAL: Gross neurological examination did not reveal any focal deficits. Diffuse weakness SKIN: No rashes. Right shoulder surgical site is dry and intact with some Steri-Strips noted, right wrist spint noted Assessment: Acute severe back pain, intractable, with multiple compression fractures History of recent right shoulder surgery and elbow and right forearm surgery Recent pulmonary embolism, anticoagulated with Eliquis Anxiety, severe, and panic attacks Hyperlipidemia Gastroesophageal reflux disease Chronic anemia GI prophylaxis DVT prophylaxis Full code Plan: Recommend to continue with current medications and management of pain. Orthopedics Dr. Camarillo has evaluated the patient recommending conservative management at this time and LSO brace has been delivered and patient reports to using and able to get up with assistance of her minimally to the hallway. Patient continues with extreme and severe anxiety and panic attacks and psychiatry has evaluated the patient recommending medication adjustments. Will continue to monitor closely and evaluate for improvement of panic attacks, anxiety, and pain management. Recommend continue monitoring Accu-Cheks before meals and at bedtime and continue with sliding scale as needed as patient is on IV steroids. Patient will complete a steroid taper on discharge. Continue to encourage incentive spirometer and use at least 10 times every hour while awake.Strongly encouraged the patient to get up out of bed more frequently and walk multiple times per day. Due to multiple complex medical issues, prognosis is guarded. The impression and plan of care has been dictated by Adrianna Aponte, nurse practitioner as directed. MD Unique I have performed a history and examination and MDM of this patient, discussed the same with the dictator, and agree with the dictator's assessment and plan as written ,documented as a scribe. Based on total visit time, I have performed more than 50% of the visit. Any additional findings or plans will be noted. Objective - Vital Signs Vital signs: Vital Signs Temp 97.5 F L 04/18/22 07:00 Pulse 67 04/18/22 07:00 Resp 18 04/18/22 07:00 BP 152/96 04/18/22 07:00 Pulse Ox 98 04/18/22 07:00 FiO2 Intake & Output 04/17/22 04/18/22 04/18/22 18:59 06:59 18:59 Intake Total 336 118 Balance 336 118 Intake: Oral 336 118 Other: Voiding Method Bedside Commode # Voids 4 1 - Labs CBC & Chem 7: 04/14/22 05:43 04/14/22 05:43 Labs: Abnormal Lab Results - Last 24 Hours (Table) 04/17/22 04/17/22 04/17/22 Range/Units 11:51 17:05 20:24 POC Glucose (mg/dL) 123 H 126 H 130 H (75-99) mg/dL 04/18/22 Range/Units 07:37 POC Glucose (mg/dL) 142 H (75-99) mg/dL
[2022-04-18 23:02] LABS: Glucose,Whole Blood 113 mg/dL (75-99)
[2022-04-18] MEDS: MELATONIN 3 MG TABLET PO SCH (23:03)
[2022-04-18] MEDS: ATORVASTATIN 10 MG TAB PO SCH (23:04)
[2022-04-18] MEDS: HYDROmorphone 0.5 MG/0.5 ML SYRINGE IVP PRN (23:04)
[2022-04-19] MEDS: hydrOXYzine pamoate 25 MG CAP PO PRN ×2 (00:07→13:03)
[2022-04-19 07:21] LABS: Glucose,Whole Blood 123 mg/dL (75-99)
[2022-04-19] MEDS: INSULIN ASPART (NovoLOG) 100 UNIT/ML VIAL SQ SCH ×4 (08:33→20:19)
[2022-04-19] MEDS: polyethylene glycoL 3350 17 GM POWD.PACK PO SCH (08:38)
[2022-04-19] MEDS: busPIRone HCl 10 MG TAB PO SCH ×3 (08:39→20:19)
[2022-04-19] MEDS: METOPROLOL TARTRATE 25 MG TAB PO SCH ×2 (08:39→20:19)
[2022-04-19] MEDS: FERROUS SULFATE 325 MG TAB PO SCH (08:39)
[2022-04-19] MEDS: oxyCODONE-APAP 7.5-325MG 1 EACH TAB PO PRN ×2 (08:39→14:18)
[2022-04-19] MEDS: DULoxetine HCL 30 MG CAPSULE.DR PO SCH ×2 (08:39→20:19)
[2022-04-19] MEDS: APIXABAN 5 MG TAB PO SCH ×2 (08:40→20:19)
[2022-04-19] MEDS: methocarbamoL 500 MG TAB PO SCH ×3 (08:40→20:18)
[2022-04-19] MEDS: methylPREDNISolone SOD SUCCI 40 MG/ML 1 ML VIAL IV SCH ×2 (08:40→16:30)
[2022-04-19 11:59] LABS: Glucose,Whole Blood 113 mg/dL (75-99)
--- NOTE | 2022-04-19 15:15 | PN ---
PROGRESS NOTE DATE OF SERVICE: 04/19/2022 This 66-year-old woman who was admitted with severe back pain is being closely monitored. Patient has multiple medical issues. Patient has anxiety also. Cymbalta and other medication are being adjusted. No chest pain. No palpitations. No fever. PHYSICAL EXAMINATION: Pulse 47, blood pressure 163/83, respiration 14. HEENT: Conjunctivae normal. NECK: No jugular venous distention. CARDIOVASCULAR: S1, S2 muffled. RESPIRATION: Breath sounds diminished at the bases. Scattered rhonchi. ABDOMEN: Soft. NERVOUS SYSTEM: No focal deficit. LABS: Accu-Cheks noted. ASSESSMENT: 1. Acute severe back pain, intractable, with multiple compression fractures. 2. History of recent right shoulder surgery with elbow and right forearm surgery. 3. Anxiety. 4. History of recent pulmonary embolism, anticoagulated with Eliquis. 5. Anxiety. 6. Hyperlipidemia. 7. Gastroesophageal reflux disease. 8. Multiple medical issues. RECOMMENDATIONS AND DISCUSSION: I recommend to continue current medications, continue with the monitoring, symptomatic treatment. Continue with pain management. Increase ambulation. I would recommend repeat labs in the morning. Guarded prognosis. Closely follow with multiple consultants. Further recommendations to follow. MMODL / IJN: [id number] /
[2022-04-19 16:43] LABS: Glucose,Whole Blood 101 mg/dL (75-99)
[2022-04-19 19:39] LABS: Glucose,Whole Blood 153 mg/dL (75-99)
[2022-04-19] MEDS: MELATONIN 3 MG TABLET PO SCH (20:18)
[2022-04-20] MEDS: methylPREDNISolone SOD SUCCI 40 MG/ML 1 ML VIAL IV SCH ×3 (00:20→16:04)
[2022-04-20] MEDS: HYDROmorphone 0.5 MG/0.5 ML SYRINGE IVP PRN (02:20)
[2022-04-20] MEDS: hydrOXYzine pamoate 25 MG CAP PO PRN (03:26)
[2022-04-20 07:17] LABS: Basophils % (A) 0 %; Eosinophils % (A) 0 %; HCT 38.5 % (34.0-46.0); HGB 12.3 gm/dL (11.4-16.0); Lymphocytes # (A) 0.8 k/uL (1.0-4.8); Lymphocytes % (A) 8 %; MCH 30.8 pg (25.0-35.0); MCV 96.3 fL (80.0-100.0); Mean Platelet Volume 7.7; Monocytes # (A) 0.5 k/uL (0-1.0); Monocytes % (A) 5 %; Neutrophils # (A) 8.5 k/uL (1.3-7.7); Neutrophils % (A) 86 %; Platelet Count 347 k/uL (150-450); RDW 14.5 % (11.5-15.5); WBC 9.9 k/uL (3.8-10.6)
[2022-04-20 07:22] LABS: Anion Gap 7 mmol/L; Blood Urea Nitrogen 18 mg/dL (7-17); Carbon Dioxide 25 mmol/L (22-30); Chloride 102 mmol/L (98-107); Glucose 124 mg/dL (74-99); Potassium 4.8 mmol/L (3.5-5.1); Sodium 134 mmol/L (137-145)
[2022-04-20 07:23] LABS: ALT 30 U/L (4-34); AST 32 U/L (14-36); African American GFR (CKD) >90 (>60 ml/min/1.73 sqM); Albumin 3.9 g/dL (3.5-5.0); Albumin/Globulin Ratio 1.2; Alkaline Phosphatase 178 U/L (38-126); Calcium 9.3 mg/dL (8.4-10.2); Globulin 3.3 g/dL; Non-African American GFR(CKD) >90 (>60 ml/min/1.73 sqM); Total Bilirubin 0.3 mg/dL (0.2-1.3); Total Protein 7.2 g/dL (6.3-8.2)
[2022-04-20 07:28] LABS: Glucose,Whole Blood 124 mg/dL (75-99)
[2022-04-20] MEDS: INSULIN ASPART (NovoLOG) 100 UNIT/ML VIAL SQ SCH ×4 (07:33→21:17)
[2022-04-20] MEDS: busPIRone HCl 10 MG TAB PO SCH ×3 (08:42→21:09)
[2022-04-20] MEDS: APIXABAN 5 MG TAB PO SCH ×2 (08:42→21:09)
[2022-04-20] MEDS: oxyCODONE-APAP 7.5-325MG 1 EACH TAB PO PRN ×2 (08:42→17:34)
[2022-04-20] MEDS: FERROUS SULFATE 325 MG TAB PO SCH (08:43)
[2022-04-20] MEDS: DULoxetine HCL 30 MG CAPSULE.DR PO SCH ×2 (08:43→21:10)
[2022-04-20] MEDS: METOPROLOL TARTRATE 25 MG TAB PO SCH ×2 (08:43→21:10)
[2022-04-20] MEDS: polyethylene glycoL 3350 17 GM POWD.PACK PO SCH (08:43)
[2022-04-20] MEDS: methocarbamoL 500 MG TAB PO SCH ×3 (08:43→21:10)
[2022-04-20 12:14] LABS: Glucose,Whole Blood 120 mg/dL (75-99)
[2022-04-20] MEDS: amLODIPine 5 MG TAB PO SCH (12:40)
--- NOTE | 2022-04-20 15:39 | PN ---
PROGRESS NOTE DATE OF SERVICE: 04/20/2022 This 66-year-old woman who was admitted with acute severe back pain, is on conservative line of management. No chest pain. No palpitations. No fever. EXAM: Alert and oriented times three. Pulse 55, blood pressure 150/82, respirations 18. HEENT: Conjunctivae normal. Neck: No JVD. Cardiovascular: S1, S2 muffled. Respirations: Breath sounds diminished in the bases. No rhonchi. No crackles. Abdomen soft. Nervous system: No focal deficits. LABS: Noted. Accu-Cheks 126. ASSESSMENT: 1. Acute severe back pain, intractable with multiple compression fractures. 2. History of recent right shoulder surgery with elbow and right forearm surgery. 3. Anxiety. 4. History of recent pulmonary embolism, anticoagulated with Eliquis. 5. Anxiety. 6. Hyperlipidemia. 7. Gastroesophageal reflux disease. 8. Multiple medical issues. RECOMMENDATIONS AND DISCUSSION: Recommend to continue current medications, management and symptomatic treatment. Continue steroids. Otherwise pain management. Case Management to check the cost of Eliquis versus Xarelto. Guarded prognosis. Dr. Baldwin will follow tomorrow. MMSTEVEL / IJN: [id number] /
[2022-04-20 17:30] LABS: Glucose,Whole Blood 140 mg/dL (75-99)
[2022-04-20] MEDS: ATORVASTATIN 10 MG TAB PO SCH (21:10)
[2022-04-20 21:27] LABS: Glucose,Whole Blood 117 mg/dL (75-99)
[2022-04-21] MEDS: hydrOXYzine pamoate 25 MG CAP PO PRN (00:31)
[2022-04-21] MEDS: methylPREDNISolone SOD SUCCI 40 MG/ML 1 ML VIAL IV SCH ×2 (00:32→11:46)
[2022-04-21] MEDS: MELATONIN 3 MG TABLET PO SCH (00:32)
[2022-04-21] MEDS: oxyCODONE-APAP 7.5-325MG 1 EACH TAB PO PRN ×3 (00:32→14:32)
[2022-04-21 08:03] LABS: Glucose,Whole Blood 119 mg/dL (75-99)
[2022-04-21] MEDS: DULoxetine HCL 30 MG CAPSULE.DR PO SCH (08:23)
[2022-04-21] MEDS: busPIRone HCl 10 MG TAB PO SCH (08:23)
[2022-04-21] MEDS: APIXABAN 5 MG TAB PO SCH (08:24)
[2022-04-21] MEDS: methocarbamoL 500 MG TAB PO SCH (08:24)
[2022-04-21] MEDS: polyethylene glycoL 3350 17 GM POWD.PACK PO SCH (08:25)
[2022-04-21] MEDS: INSULIN ASPART (NovoLOG) 100 UNIT/ML VIAL SQ SCH ×2 (08:25→13:10)
[2022-04-21] MEDS: METOPROLOL TARTRATE 25 MG TAB PO SCH (08:25)
[2022-04-21] MEDS: FERROUS SULFATE 325 MG TAB PO SCH (08:25)
[2022-04-21 08:55] VITALS: RESP 18
[2022-04-21 11:48] VITALS: BP 120/68; PULSE 54; TEMP 98
[2022-04-21] MEDS: amLODIPine 5 MG TAB PO SCH (11:49)
[2022-04-21 12:02] LABS: Glucose,Whole Blood 97 mg/dL (75-99)
--- NOTE | 2022-04-22 15:11 | P.DS ---
Providers Date of admission: 04/15/22 11:07 Expected date of discharge: 04/21/22 Attending physician: Devin Baldwin Consults: 04/16/22 12:54 Consult Physician Urgent Consulting Provider: Sukh Rae Consult Reason/Comments: Anxiety, panic attacks, chronic pain Do you want consulting provider notified?: Yes Primary care physician: Devin Baldwin Hospital Course: Final Diagnoses: Acute severe back pain, intractable, with multiple thoracolumbar compression fractures History of recent fall with multiple right upper extremity injuries status post surgical repair, approximately 5-6 weeks ago. Recent pulmonary embolism, anticoagulated with Eliquis Anxiety, severe with panic attacks Hyperlipidemia Gastroesophageal reflux disease Chronic anemia Hospital course: This is a 66-year-old female admitted with intractable severe back pain, multiple thoracolumbar compression fractures, recent fall, panic attacks and multiple other medical issues. Evaluated and treated by psychiatry and orthopedic spine. Conservative treatment recommended including LSO brace. Medications adjusted as recommended per psychiatry , with further follow-up outpatient.Significant clinical improvement. Patient reports she is unable to take Norvasc secondary to prior experience with significant edema. Upon discharge vital signs stable, no further antihypertensive added to med regimen this time; continued close monitoring outpatient. Patient also reported she was paying high amounts [place]; discussed with case management. Patient will be sent home on a free month of Eliquis from [place], GABY contacted [facility] and notifed of Eliquis copay. Pt is in coverge gap and last fill 04-05 and cost was $464.84. PCP, Dr Baldwin office will be attempting to obtaining free samples. Patient will be discharged home in a stable condition with guarded prognosis. The impression and plan of care has been dictated as directed. : I performed a history and examination of this patient, discussed the same with the dictator. I agree with the dictator's note ,documented as a scribe. Any additional findings or plans will be noted. Patient Condition at Discharge: Stable Plan - Discharge Summary New Discharge Prescriptions: New predniSONE 10 mg PO DIRECTED #30 tab busPIRone HCl [Buspar] 20 mg PO TID #180 tab DULoxetine HCL [Cymbalta] 30 mg PO BID #60 cap Melatonin 6 mg PO HS #60 tab hydrOXYzine pamoate [Vistaril] 50 mg PO Q8HR PRN #42 cap PRN Reason: Anxiety oxyCODONE-APAP 7.5-325MG [Percocet 7.5-325 mg] 1 tab PO Q6HR PRN 3 Days #12 tab PRN Reason: Pain Continue Ferrous Sulfate [Iron (65 MG Elemental)] 325 mg PO W/BRKFST Metoprolol Tartrate [Lopressor] 25 mg PO BID polyethylene glycoL 3350 [Miralax] 17 gm PO DAILY Acetaminophen Tab [Tylenol] 325 - 650 mg PO Q6H PRN PRN Reason: Fever And/ Or Pain Buprenorphine [Butrans 5 MCG/HR] 1 patch TRANSDERM TU methocarbamoL [Robaxin] 1,000 mg PO TID@0900,1600,2100 Atorvastatin Calcium [Lipitor] 10 mg PO Q48H Apixaban [Eliquis] 5 mg PO BID #60 tab Discontinued oxyCODONE-APAP 7.5-325MG [Percocet 7.5-325 mg] 1 tab PO Q8H PRN PRN Reason: Pain ALPRAZolam [Xanax] 0.25 mg PO DAILY PRN PRN Reason: Anxiety Escitalopram [Lexapro] 20 mg PO DAILY busPIRone HCl [Buspar] 10 mg PO TID@0900,1600,2100 Discharge Medication List Ferrous Sulfate [Iron (65 MG Elemental)] 325 mg PO W/BRKFST 08/29/19 [History] Metoprolol Tartrate [Lopressor] 25 mg PO BID 08/29/19 [History] Acetaminophen Tab [Tylenol] 325 - 650 mg PO Q6H PRN 04/13/22 [History] Atorvastatin Calcium [Lipitor] 10 mg PO Q48H 04/13/22 [History] Buprenorphine [Butrans 5 MCG/HR] 1 patch TRANSDERM TU 04/13/22 [History] methocarbamoL [Robaxin] 1,000 mg PO TID@0900,1600,2100 04/13/22 [History] polyethylene glycoL 3350 [Miralax] 17 gm PO DAILY 04/13/22 [History] Apixaban [Eliquis] 5 mg PO BID #60 tab 04/21/22 [Rx] DULoxetine HCL [Cymbalta] 30 mg PO BID #60 cap 04/21/22 [Rx] Melatonin 6 mg PO HS #60 tab 04/21/22 [Rx] busPIRone HCl [Buspar] 20 mg PO TID #180 tab 04/21/22 [Rx] hydrOXYzine pamoate [Vistaril] 50 mg PO Q8HR PRN #42 cap 04/21/22 [Rx] oxyCODONE-APAP 7.5-325MG [Percocet 7.5-325 mg] 1 tab PO Q6HR PRN 3 Days #12 tab 04/21/22 [Rx] predniSONE 10 mg PO DIRECTED #30 tab 04/21/22 [Rx] Follow up Appointment(s)/Referral(s): [facility], Psychiatry [Other] - 1 Week Tiffany Rodriguez DO [Doctor of Osteopathic Medicine] - 2 Weeks Devin Baldwin DO [Primary Care Provider] - 1 Week [facility] [NON-STAFF] - As Needed (Supplier of Hospital Bed) Rm Rosenbaum PAC [PHYSICIAN SPACE SYSTEMS OPERATIONS MANAGER] - 2 Weeks (Patient may follow-up with Rm Rosenbaum PA-C or Dr. Goran Camarillo at [facility] in 2-3 weeks following discharge. ) [employer] [facility] [NON-STAFF] - As Needed (Contact to obtain a wheelchair.) [facility] Visiting Nurse, [NON-STAFF] - 1-2 Days David Reeves [NON-STAFF] - As Needed (Supplier of TLSO brace) Activity/Diet/Wound Care/Special Instructions: 1. Patient may wear Spinomed TLSO brace for comfort and support while sitting upright at greater than 45, while working with therapy, and while ambulating; patient does not have to wear the brace while lying in bed or bathing 2. Patient should avoid excessive bending, twisting, and lifting; no lifting greater than 10 pounds. Discharge/Stand Alone Forms: Community Resources, Outpatient Counseling, Personal Certified Health Education Specialist Discharge Disposition: HOME SELF-CARE
--- NOTE | 2022-04-25 14:15 | CDI ---
Documentation Clarification Form Date: 04/25/2022 01:48:38 PM From: Vivienne Phipps RN CCDS Admit Date: 04/15/2022 11:07:00 AM Patient Name: Stefani Masr Visit Number: [id number] Discharge Date: 04/21/2022 03:00:00 PM ATTENTION: The Clinical Documentation Specialists (CDI) and [facility] Coding Staff appreciate your assistance in clarifying documentation. Please respond to the clarification below the line at the bottom and electronically sign. The CDI & [facility] Coding staff will review the response and follow-up if needed. Please note: Queries are made part of the Legal Health Record. If you have any questions, please contact the author of this message via ITS. Dr. Devin Baldwin There is documentation of recent pulmonary embolism, 04/21, DCS. Additional clarification of the acuity of the condition is requested. History/Risk Factors: 66-year-old female presents to the ED with worsening back pain after returning to [place] after being in the hospital 03/10/2022 in [place], [place]. Medical History: PE, Compression fractures T9 and L2; Multiple fractures to shoulder, elbow and wrist which required surgical intervention in [place]. 05/06, Ortho progress note. Clinical Indicators: 04/15, Ortho PN: Patient is also currently on Elquis for recent diagnosis of pulmonary embolism during her admission in [place], [place]. 04/16, CXR: Bilateral infiltrate and small effusion. 04/16, Venous doppler: Bilateral lower extremity ultrasound negative for DVT. Treatment: 04/13 04/21 Eliquis 5mg PO BID Can you please clarify the acuity of the Pulmonary Embolsim? [ X ] Acute Pulmonary Embolism [ ] Subacute Pulmonary Embolism [ ] Chronic Pulmonary Embolism [ ] Other, please specify [ ] Unable to determine (Template Last Revised: January 2021) MTDD
== END 2022-04-21 15:00 | disposition home or self-care (01) | DRG 559 ==
LOC: EC 11:38 → 6NMEDSUR 13:49 → OBSVTOIN 04-15 11:07
PROVIDERS: ADMIT Family Medicine; ATTEND Family Medicine
DX: S32.010G Wedge compression fracture of first lumbar vertebra, subsequent encounter for fracture with delayed healing (principal); I26.99 Other pulmonary embolism without acute cor pulmonale; S32.028G Other fracture of second lumbar vertebra, subsequent encounter for fracture with delayed healing; S32.038G Other fracture of third lumbar vertebra, subsequent encounter for fracture with delayed healing; S32.048 Other fracture of fourth lumbar vertebra; S32.058G Other fracture of fifth lumbar vertebra, subsequent encounter for fracture with delayed healing; S22.060G Wedge compression fracture of T7-T8 vertebra, subsequent encounter for fracture with delayed healing; S22.070G Wedge compression fracture of T9-T10 vertebra, subsequent encounter for fracture with delayed healing; S22.080G Wedge compression fracture of T11-T12 vertebra, subsequent encounter for fracture with delayed healing; M40.204 Unspecified kyphosis, thoracic region; F41.9 Anxiety disorder, unspecified; D64.9 Anemia, unspecified; M85.88 Other specified disorders of bone density and structure, other site; M54.59 Other low back pain; M81.0 Age-related osteoporosis without current pathological fracture; E66.9 Obesity, unspecified; Z68.36 Body mass index [BMI] 36.0-36.9, adult; R32 Unspecified urinary incontinence; Z28.310 Unvaccinated for COVID-19; R42 Dizziness and giddiness; T46.0X5A Adverse effect of cardiac-stimulant glycosides and drugs of similar action, initial encounter; E78.5 Hyperlipidemia, unspecified; F41.0 Panic disorder [episodic paroxysmal anxiety]; G89.29 Other chronic pain; K21.9 Gastro-esophageal reflux disease without esophagitis; Z91.81 History of falling; Z79.01 Long term (current) use of anticoagulants; Z87.11 Personal history of peptic ulcer disease; Z87.81 Personal history of (healed) traumatic fracture; Z98.890 Other specified postprocedural states; Z90.710 Acquired absence of both cervix and uterus; Z90.49 Acquired absence of other specified parts of digestive tract; Z86.2 Personal history of diseases of the blood and blood-forming organs and certain disorders involving the immune mechanism; Z79.899 Other long term (current) drug therapy; Z79.82 Long term (current) use of aspirin; Z88.1 Allergy status to other antibiotic agents; Z88.0 Allergy status to penicillin; Z86.72 Personal history of thrombophlebitis; Z86.19 Personal history of other infectious and parasitic diseases; Z80.7 Family history of other malignant neoplasms of lymphoid, hematopoietic and related tissues; Z81.8 Family history of other mental and behavioral disorders
CPT/HCPCS: 71045; 72072; 72100; 80048; 80053; 80306; 81001; 85025; 86140; 93970; 96374; 96375; 99284